=== PATIENT | male | born 1960 | race Caucasian/White ===

== ENCOUNTER 2020-03-13 05:40 | Inpatient (IN) ==
--- NOTE | 2020-02-20 11:22 | PAT Medication Instructions ---
Medication Instructions Date of Service February 20, 2020 Home Medications aspirin 81 mg PO QAM amlodipine 5 mg PO BID carvedilol [Coreg] 12.5 mg PO QAM doxazosin 2 mg PO QAM carvedilol [Coreg] 25 mg PO QPM ibuprofen-diphenhydramine HCl [Ibuprofen PM] 2 cap PO HS PRN insulin glargine [Lantus U-100 Insulin] 30 unit SUBCUT QAM omega 9-fcg-fdh-fish oil [Fish Oil] 1 cap PO QAM ASK your surgeon for instructions ibuprofen-diphenhydramine HCl [Ibuprofen PM] 2 cap PO HS PRN ASK your prescriber and surgeon aspirin 81 mg PO QAM STOP taking 2 weeks before surgery (or as soon as possible if surgery is within 2 weeks) omega 4-wcw-cnv-fish oil [Fish Oil] 1 cap PO QAM Take morning of surgery With a small sip of water, OTHERWISE NOTHING TO EAT OR DRINK AFTER MIDNIGHT: amlodipine 5 mg PO BID carvedilol [Coreg] 12.5 mg PO QAM doxazosin 2 mg PO QAM Take evening before surgery amlodipine 5 mg PO BID carvedilol [Coreg] 25 mg PO QPM Insulin Dependent Diabetic Patients * Test your blood sugar the morning of surgery * If Blood Sugar is GREATER THAN 150, take HALF of your regular dose of: insulin glargine [Lantus U-100 Insulin] take 15 units * If Blood Sugar is LESS THAN 150, DO NOT TAKE ANY: insulin glargine [Lantus U- 100 Insulin] Other Notes If you have any questions please call us at [phone] or [phone] or [phone] or [phone]
--- NOTE | 2020-02-20 11:27 | Anesthesiology Consultation ---
Date of Service February 20, 2020 Assessment & Plan (1) Encounter for pre-operative examination: - Patient seeing cardiology prior to surgery. Awaiting cardiology office visit note (scheduled 02/25, [facility]). - Check BSG AM DOS - ASA instructions per surgeon/cardiology Chart Review Chart Review: Patient seen in Pre Admission Testing Teaching & Discussion Pre-Anesthesia Teaching/Discussion Notes: Instructed NPO after midnight before surgery,except medications with 15 cc of water. Medication instructions provided according to the PAT guidelines. History Surgery Operation Date: 03/13/20 10:05 Proposed Procedures p L4-L5 Transforaminal Lumbar Interbody Fusion; Spinal Cord Monitoring - Poli Chan DO Height/Weight Height: 5 ft 11 in Weight: 114.4 kg Allergies Allergy/AdvReac Type Severity Reaction Status Date / Time No Known Allergies Allergy Verified 02/19/20 10:02 Medications Home Medications Medication Instructions Recorded Confirmed Last Taken aspirin 81 mg PO QAM #0 12/07/13 02/19/20 Unknown amlodipine 5 mg PO BID #0 tab 11/27/15 02/19/20 Unknown carvedilol [Coreg] 12.5 mg PO QAM #0 tab 11/27/15 02/19/20 Unknown doxazosin 2 mg PO QAM #0 11/27/15 02/19/20 Unknown carvedilol [Coreg] 25 mg PO QPM 02/19/20 02/19/20 Unknown ibuprofen-diphenhydramine HCl 2 cap PO HS PRN 02/19/20 02/19/20 Unknown [Ibuprofen PM] insulin glargine [Lantus U-100 30 unit SUBCUT QAM 02/19/20 02/19/20 Unknown Insulin] omega 1-uup-vcy-fish oil [Fish Oil] 1 cap PO QAM 02/19/20 02/19/20 Unknown Past Medical History Medical History Degenerative disc disease Diabetes mellitus, type 2 IDDM GERD (gastroesophageal reflux disease) occasional Hyperlipidemia Myocardial Infarction x3, most recent 2018, stent placed 06/2015 Obesity Osteoarthritis Exercise / Class Metabolic Activity III < 4 Walking/Shop/Light housework Past Surgical History Surgical History History of cardiac cath 2015: stent x1, 2018: no stents History of colonoscopy 2019 History of discectomy History of esophagogastroduodenoscopy (EGD) 2019 History of hernia repair History of vasectomy Past Anesthesia History No Hx of Anesthesia Complications and No Family Hx of Anesthesia Complications History of PONV No Hx of PONV and No Hx of Motion Sickness Social History Smoking Status: Current every day smoker tobacco type: cigarettes Smoking cigarettes per day: 1 PPD (tobacco use x 45 years) Do You Dip or Chew Tobacco: No Hx Alcohol Use: Yes Alcohol type: beer alcohol intake frequency: holidays/special occasions only Hx Substance Use: No Review of Systems Occasional reflux. Patient denies chest pain, shortness of breath, cough, wheezing, palpitations. Physical Exam Vital Signs VITALS BP 148/70 P 78 TEMP 98.3 SP02 96%RA RESP 20 PHYSICAL Full neck and c-spine range of motion. Full TMJ range of motion. TMD 3 finger breaths Mallampati Score 2 Dentition: missing molars Lungs: clear throughout to auscultation Cardiac: regular rate and rhythm, no murmurs noted Spine: normal Carotid arteries: negative bruit Extremities: no edema Trimmed be Testing Laboratory Results 02/20/20 11:53 02/20/20 11:53 PT 11.2 Seconds (9.0-12.0) 02/20/20 11:53 INR 1.1 (0.9-1.1) 02/20/20 11:53 APTT 26.9 Seconds (21.0-31.0) 02/20/20 11:53 Hemoglobin A1c 8.4 % (4.5-5.6) H 02/20/20 11:53 Urine Color Yellow 02/20/20 Unknown Urine Appearance Clear (Clear) 02/20/20 Unknown Urine pH 5.0 (4.5-7.5) 02/20/20 Unknown Ur Specific Walsh 1.015 (1.000-1.030) 02/20/20 Unknown Urine Protein Trace (Negative) H 02/20/20 Unknown Urine Glucose (UA) Negative (Negative) 02/20/20 Unknown Urine Ketones Negative (Negative) 02/20/20 Unknown Urine Nitrite Negative (Negative) 02/20/20 Unknown Ur Leukocyte Esterase Trace (Negative) H 02/20/20 Unknown Urine WBC (Auto) 1-5 /hpf (0-5) 02/20/20 Unknown Urine RBC (Auto) 0-4 /hpf (0-4) 02/20/20 Unknown U Hyaline Cast (Auto) 1-5 /lpf (0-5) 02/20/20 Unknown U Epithel Cells (Auto) 0-5 /lpf (0-5) 02/20/20 Unknown Urine Bacteria (Auto) Negative (Negative) 02/20/20 Unknown Blood Type AB Positive 02/20/20 11:53 Antibody Screen NEGATIVE 02/20/20 11:53 Surgeon's office made aware of elevated WBC/Hgba1c* Electrocardiogram Date: 02/20/20 NSR at 74bpm. No significant change compared to 11/27/15 per cardiology. Chest X-Ray Date: 02/20/20 The cardiac and mediastinal contours remain stable. There is no failure. There is no focal pulmonary consolidation. There are no pleural effusions. There are multiple old right-sided rib fractures. A retrosternal nodule visualized on the lateral view only, is quite dense despite its small size and is therefore likely benign. IMPRESSION: No active disease in the chest. Echocardiogram Date: 09/08/18 LVEF 60-65%. Mild LAD. Mild mitral annular calcification. No significant va lvular disease. Cardiac Catheterization Date: 09/09/18 Non-obstructive coronary atherosclerosis. Normal resting hemodynamics. Diffuse 30% stenosis of proximal LAD.
--- NOTE | 2020-02-20 12:17 | XRay Report ---
XR chest Pre-admission PA/Lat CLINICAL HISTORY: Preoperative chest COMPARISON STUDY: December 07, 2013 FINDINGS: The cardiac and mediastinal contours remain stable. There is no failure. There is no focal pulmonary consolidation. There are no pleural effusions. There are multiple old right-sided rib fract ures. A retrosternal nodule visualized on the lateral view only, is quite dense despite its small siz e and is therefore likely benign[ IMPRESSION: No active disease in the chest. ACT 112: Negative or not required by law. Electronically signed by: Dez Guzman M.D. 02/20/2020 12:16 PM
[2020-02-20 12:31] LABS: Basophils # (auto) 0.05 K/uL (0-0.2); Basophils % (auto) 0.3 %; Eosinophils # (auto) 0.26 K/uL (0-0.5); Eosinophils % (auto) 1.5 %; Hematocrit (blood only) 43.2 % (42-52); Hemoglobin 14.8 g/dL (14.0-18.0); Immature Granulocytes # (auto) 0.07 K/uL (0.00-0.02); Immature Granulocytes % (auto) 0.4 %; Lymphocytes # (auto) 2.36 K/uL (1.2-3.4); Lymphocytes % (auto) 13.6 %; Mean Corpuscular Hemoglobin 32.2 pg (25-34); Mean Corpuscular Hgb Conc 34.3 g/dL (32-36); Mean Corpuscular Volume 94.1 fL (80-100); Mean Platelet Volume 11.6 fL (7.4-10.4); Monocytes # (auto) 1.38 K/uL (0.11-0.59); Monocytes % (auto) 7.9 %; Neutrophils # (auto) 13.24 K/uL (1.4-6.5); Neutrophils % (auto) 76.3 %; Platelet Count 211 K/uL (130-400); RDW Coefficient of Variation 13.3 % (11.5-14.5); RDW Standard Deviation 45.4 fL (36.4-46.3); Red Blood Count 4.59 M/uL (4.7-6.1); White Blood Count 17.36 K/uL (4.8-10.8)
[2020-02-20 12:36] LABS: Estimated Average Glucose 194 mg/dl; Hemoglobin A1C 8.4 % (4.5-5.6)
[2020-02-20 12:38] LABS: Appearance Urine Clear (Clear); Bacteria Urine Automated Negative (Negative); Bilirubin Urine Negative (Negative); Blood Urine Negative (Negative); Color Urine Yellow; Epithelial Cell Urine Auto 0-5 /lpf (0-5); Glucose Urine UA Negative (Negative); Ketones Urine Negative (Negative); Leukocyte Esterase Urine Trace (Negative); Nitrite Urine Negative (Negative); Protein Urine Trace (Negative); RBC Urine Automated 0-4 /hpf (0-4); Specific Gravity Urine 1.015 (1.000-1.030); Urobilinogen Urine Negative (Negative)
[2020-02-20 12:40] LABS: BUN Creatinine Ratio 14.7 (10-20); Calcium 9.3 mg/dl (8.5-10.1); Creatinine Clr Calc Pharmacy 124.8 ml/min; Est GFR (African American) 112.4; Potassium 4.7 mmol/L (3.5-5.1)
[2020-02-20 12:43] LABS: INR 1.1 (0.9-1.1); Partial Thromboplastin Time 26.9 Seconds (21.0-31.0); Prothrombin Time 11.2 Seconds (9.0-12.0)
--- NOTE | 2020-02-20 13:00 | Electrocardiogram Report ---
Test Reason : Blood Pressure : / mmHG Vent. Rate : 074 BPM Atrial Rate : 074 BPM P-R Int : 158 ms QRS Dur : 090 ms QT Int : 390 ms P-R-T Axes : 072 059 024 degrees QTc Int : 432 ms Normal sinus rhythm Normal ECG When compared with ECG of 27-NOV-2015 09:47, No significant change was found Confirmed by Yared Couch ([id number]) on 02/20/2020 1:00:40 PM Referred By: Poli Chan Confirmed By:Yared Couch
--- NOTE | 2020-03-08 10:16 | History & Physical Report ---
Date of Service March 08, 2020 Assessment & Plan (1) Lumbar disc herniation with radiculopathy: At this time patient has a component of underlying's lumbar spinal stenosis with acute disc herniation and compression of the exiting L4 nerve root on the right. This undoubtedly is contributing to his severe pain muscle atrophy and progressive weakness. With these changes I am recommending urgent lumbar decompression and fusion. It would require complete facetectomy L4-5 on the right adequately decompress the L4 nerve root. Prolonged nerve compression in his case could lead to permanent leg weakness and pain. We will try to have surgery range performed soon as possible. Present on Admission?: Yes History of Present Illness Chief Complaint: Back pain with bilateral leg pain and weakness Primary Care Provider: Dora Weinstein PA-C This is a 51-year-old male who presents with worsening back and bilateral leg pain and weakness. It has been progressive over the past several months. Denies any gross precipitating trauma fall or event. He is failed extensive course of nonoperative care he describes his symptoms as rating from the lumbosacral junction particular into the right buttock posterior lateral thigh radiating to the anterior tibia. He has some symptoms radiating to the left l ower extremity as well. It markedly limits his ability to stand and ambulate. He gets some relief with sitting and leaning forward. It does awaken him from sleep. He notes marked difficulty with ascending and descending stairs as his right lower extremity gives way. This is been progressive in nature. Allergies Allergy/AdvReac Type Severity Reaction Status Date / Time No Known Allergies Allergy Verified 02/19/20 10:02 Home Medications Home Medications Medication Instructions Recorded Confirmed Type aspirin 81 mg PO QAM #0 12/07/13 02/19/20 History amlodipine 5 mg PO BID #0 tab 11/27/15 02/19/20 History carvedilol [Coreg] 12.5 mg PO QAM #0 tab 11/27/15 02/19/20 History doxazosin 2 mg PO QAM #0 11/27/15 02/19/20 History carvedilol [Coreg] 25 mg PO QPM 02/19/20 02/19/20 History ibuprofen-diphenhydramine HCl 2 cap PO HS PRN 02/19/20 02/19/20 History [Ibuprofen PM] insulin glargine [Lantus U-100 30 unit SUBCUT QAM 02/19/20 02/19/20 History Insulin] omega 6-bnt-usd-fish oil [Fish Oil] 1 cap PO [facility] 02/19/20 02/19/20 History hydrochlorothiazide 12.5 mg PO DAILY 02/29/20 02/29/20 History gabapentin 300 mg capsule mg PO .TAKE 1 CAPSULE 3 TIMES 03/04/20 03/04/20 History DAILY. glipizide 10 mg tablet mg PO .Take 1 tablet twice daily 03/04/20 03/04/20 History metformin 1,000 mg tablet mg PO .TAKE 1 TABLET TWICE DAILY. 03/04/20 03/04/20 History naproxen 250 mg tablet mg PO .TAKE 1 TABLET 3 TIMES DAILY 03/04/20 03/04/20 History WITH MEALS. nebivolol 20 mg tablet mg PO .TAKE 1 TABLET DAILY. 03/04/20 03/04/20 History Past Med/Surg History Medical History (Updated 03/08/20 @ 10:15 by Poli Chan DO) CAD (coronary artery disease) Degenerative disc disease Diabetes mellitus, type 2 IDDM GERD (gastroesophageal reflux disease) occasional Hyperlipidemia Hypertension Myocardial Infarction x3, most recent 2018, stent placed 06/2015 Obesity Osteoarthritis Surgical History History of cardiac cath 2015: stent x1, 2018: no stents History of colonoscopy 2019 History of discectomy History of esophagogastroduodenoscopy (EGD) 2019 History of hernia repair History of vasectomy Social History Preferred Language: Gabonese Communication Ability: Effective Gun Perforator Required: No Beliefs That Will Affect Care: None Current Living Situation: Spouse Other Information That Helps Us Care for You: No Feels Safe at Home: Yes Smoking Status: Current every day smoker Tobacco Type: cigarettes ; Cigarettes Per Day: 1 PPD (tobacco use x 45 years) ; Do You Dip or Chew Tobacco: No ; Second Hand Exposure: No ; Tobacco Cessation Education Requested by Patient: No Hx Alcohol Use: Yes Alcohol type: beer Hx Substance Use: No Physical Exam Physical Exam: On exam he is alert and oriented He ambulates about the room with a stooped antalgic gait. Bench exam reveals marked sensory deficits on the right lower extremity compared to left. His absent deep tendon reflexes. There is no evidence of clonus. Strength testing demonstrates weakness at a 4/5 right dorsiflexion and quadriceps compared to a 5 over 5 strength on the left. Plantar flexion is a 5/5 bilaterally. He has negative logroll. Heart is regular rate and rhythm Lungs clear to auscultation Results & Data Diagnostic Findings MRI lumbar spine available for review demonstrates evidence of moderate degener ative discal disease throughout the lumbar spine. There is evidence of a disc herniation at L4-L5. There is severe right and moderate left neuroforaminal disease. There is evidence of a far lateral disc herniation at L4-5 on the right. There is significant displacement of the exiting L4 nerve root.
[2020-03-13] MEDS ORDERED: ACETAMINOPHEN 500 MG TAB PO SCH (06:00)
[2020-03-13] MEDS ORDERED: LR 15ML/HR IV SCH (06:00)
[2020-03-13] MEDS ORDERED: CeleBREX 200 MG CAP PO SCH (06:00)
[2020-03-13] MEDS ORDERED: CEFAZOLIN 2000MG 2,000 MG/15 ML SYR IV SCH (06:00)
[2020-03-13] MEDS ORDERED: GABAPENTIN 600 MG DOSE PO SCH (06:00)
[2020-03-13 06:24] LABS: Basophils # (auto) 0.08 K/uL (0-0.2); Basophils % (auto) 0.7 %; Eosinophils # (auto) 0.31 K/uL (0-0.5); Eosinophils % (auto) 2.6 %; Hematocrit (blood only) 40.7 % (42-52); Hemoglobin 13.8 g/dL (14.0-18.0); Immature Granulocytes # (auto) 0.05 K/uL (0.00-0.02); Immature Granulocytes % (auto) 0.4 %; Lymphocytes # (auto) 2.08 K/uL (1.2-3.4); Lymphocytes % (auto) 17.5 %; Mean Corpuscular Hemoglobin 31.6 pg (25-34); Mean Corpuscular Volume 93.1 fL (80-100); Mean Platelet Volume 10.8 fL (7.4-10.4); Monocytes # (auto) 1.29 K/uL (0.11-0.59); Monocytes % (auto) 10.9 %; Neutrophils # (auto) 8.05 K/uL (1.4-6.5); Neutrophils % (auto) 67.9 %; Platelet Count 215 K/uL (130-400); RDW Coefficient of Variation 13.1 % (11.5-14.5); RDW Standard Deviation 44.6 fL (36.4-46.3); Red Blood Count 4.37 M/uL (4.7-6.1); White Blood Count 11.86 K/uL (4.8-10.8)
[2020-03-13 06:31] LABS: Mean Corpuscular Hgb Conc 33.9 g/dL (32-36)
[2020-03-13] MEDS ORDERED: GLYCOPYRROLATE 0.2 MG/ML VIAL ONE ×2 (06:50→09:19)
[2020-03-13] MEDS ORDERED: ONDANSETRON INJ 2 MG/ML 2 ML VIAL ONE (06:50)
[2020-03-13] MEDS ORDERED: fentaNYL citrate 100 MCG/2 ML VIAL ONE (06:50)
[2020-03-13] MEDS ORDERED: DEXAMETHASONE SOD INJ 4 MG/ML VIAL ONE (06:50)
[2020-03-13] MEDS ORDERED: LIDOCAINE HCL 2% 2 ML VIAL/AMP(20MG/ML) INFIL ONE (06:50)
[2020-03-13] MEDS ORDERED: PROPOFOL IV EMULSION 10 MG/ML 20 ML VIAL IV ONE (06:50)
[2020-03-13] MEDS ORDERED: MIDAZOLAM HCL 1 MG/ML 2ML VIAL ONE (06:50)
[2020-03-13] MEDS ORDERED: NEOSTIGMINE METHYLSULFATE 5 MG/5 ML SYR ONE (06:50)
[2020-03-13] MEDS ORDERED: BACITRACIN INJ 50,000 UNIT VIAL ONE (06:56)
[2020-03-13] MEDS ORDERED: fentaNYL citrate 100 MCG/2 ML VIAL IV PRN (06:57)
[2020-03-13] MEDS ORDERED: HYDROmorphone INJ 1 MG/ML SYRINGE IV PRN ×2 (06:57→10:58)
[2020-03-13] MEDS ORDERED: BUPIVACAINE/EPINEPHRINE 0.5% MPF 1:200,000 10 ML VIAL ONE ×2 (06:57)
[2020-03-13] MEDS ORDERED: ONDANSETRON INJ 2 MG/ML 2 ML VIAL IV PRN ×2 (06:57→10:58)
[2020-03-13] MEDS ORDERED: ePHEDrine sulfate 50 MG/ML AMP IV PRN (06:57)
[2020-03-13] MEDS ORDERED: ATROPINE SULFATE 0.1 MG/ML 10ML SYR IV PRN (06:57)
[2020-03-13] MEDS ORDERED: LARYING-O-JET KIT (LTA) ONE (06:58)
[2020-03-13] MEDS ORDERED: SUCCINYLCHOLINE CHLORIDE 20 MG/ML 10 ML VIAL ONE (06:58)
[2020-03-13] MEDS ORDERED: SODIUM CHLORIDE 0.9% INJ 10 ML VIAL ONE (06:58)
[2020-03-13] MEDS ORDERED: ROCURONIUM BROMIDE 10 MG/ML 5 ML VIAL ONE (06:58)
[2020-03-13] MEDS ORDERED: HYDROmorphone INJ 2 MG/ML SYR/VIAL ONE (06:58)
[2020-03-13] MEDS ORDERED: DexMEDEtomidine HCL IV 100 MCG/ML VIAL ONE (07:14)
--- NOTE | 2020-03-13 07:35 | History & Physical Bridge Note ---
Date of Service March 13, 2020 History & Physical Bridge Note I have examined the patient, reviewed the History & Physical and in the interval since the performance of the History & Physical I have noted the following changes of clinical significance: no changes noted
[2020-03-13] MEDS ORDERED: ePHEDrine sulfate 50 MG/ML AMP ONE ×2 (09:07→09:37)
[2020-03-13] MEDS ORDERED: FLOSEAL HEMOSTATIC MATRIX 10ML TOP ONE (09:07)
[2020-03-13] MEDS ORDERED: PHENYLEPHRINE 100MCG/ML 5ML SYR ONE (09:37)
[2020-03-13] MEDS ORDERED: ePHEDrine sulfate 50 MG/ML SYR ONE (09:37)
--- NOTE | 2020-03-13 09:56 | Fluoroscopy Report ---
FL lumbar spine 2-3V CLINICAL HISTORY: 59 years-old Male presenting with L4-5 FUSION. TECHNIQUE: 2 fluoroscopic image(s) recorded as part of an intraoperative procedure. COMPARISON: MR from 11/20/2015. FINDINGS/IMPRESSION: Posterior bilateral transpedicular screw and roe fixation of L4-5 with L4 laminectomy and L4-5 interb missael spacer. Normal anatomic alignment. Please see surgical report for further details. Fluoroscopy dosage (mGy): 13.20. Fluoroscopy time: 13.4 seconds. Number or time of high level fluoroscopy (HLF), digital spot, or digital subtraction images: 0. ACT 112: Negative or not required by law. Electronically signed by: Jarek Barber M.D. 03/13/2020 9:55 AM
--- NOTE | 2020-03-13 10:05 | Operative Report ---
Post Operative Report Pre & Post Diagnosis Operation Date: 03/13/20 07:45 Pre-Op Diagnosis: Lumbar Disc Herniation with Radiculopathy L4-L5 Post-Op Diagnosis: Lumbar Disc Herniation with Radiculopathy L4-L5 I identified the patient and participated in the time-out.: Yes Procedure Operation Date: 03/13/20 07:45 Actual Procedures #1 lumbar decompression with bilateral medial facetectomies and foraminotomies L3-4 and L4-5. #2 posterior spinal fusion L4-5 per #3 placed posterior instrumentation L4-5 per #4 interbody fusion L4-5 per #5 placement of peek cage 14 x 26 mm at L4-5. #6 placement of locally harvested morselized autograft in the posterior lateral gutters. #7 placement infuse collagen sponge, master graft in the posterior lateral gutters and ostial amp in the interbody space. Surgeon Poli Chan, Head Of Acquisitions Muna Lucero Estimated Blood Loss 100 Findings See Below Patient is 5 foot 11 inches tall weighing over 112 kg with a BMI in excess of 34. The patient's body habitus did add significant technical difficulty requiring our deeper retractors and longest instruments in order to perform his procedure. This added at least 40% increase to the operative time. Specimens None Indications This is a 59-year-old male that noted a marked decline in status over the past several months with progressive bilateral leg pain and weakness. Subsequently we recommended urgent decompression and fusion of the L4-5 level. Description of Procedure Patient was met with identified informed consent obtained. Patient was then taken to the operative suite underwent intubation placed in a prone position the Enrique table on top of the Oj frame. All bony prominences well-padded eyes inspected to ensure no external pressure placed upon them. This point the lumbar spine was prepped and draped in a normal sterile fashion. Sharp disse ction with the assistance of Bovie cautery was performed down to and exposing the lamina and transverse processes of L4 and L5. From caudal cephalad fashion complete laminectomy of L4 was performed including partial laminectomy of L3 in order to address and performed bilateral medial facetectomies and foraminotomies to address severe spinal stenosis. Pedicle screws were then placed in L4 and L5 bilaterally with assistance of fluoroscopy and proper sized roe placed. By way of a transforaminal approach and left complete discectomy was performed endplates curetted to subcortical bleeding bone and a 14 x 26 mm peek cage filled with osteo-bone graft tapped in position. The rods were then compressed locked into final position bilaterally. The transverse processes of L4 and L5 bur to subcortical bleeding bone. Infuse collagen sponge master graft local autograft placed in the posterior lateral gutters. 15 round HANK drain inserted. Incision was then closed with 1 Vicryl in the fascia 2-0 Vicryl subcutaneously and 4 Monocryl for final skin closure. Steri-Strip sterile dressings placed. Patient will continue PACU stable addition. Please note Muna Lucero present at the entire procedure involved the patient positioning complex portions of the surgery and final skin closure. Lastly spinal cord monitoring was utilized throughout the procedure no changes noted. I attest to the content of the Intraoperative Record and any orders documented therein. Any exceptions are noted below.
[2020-03-13] MEDS ORDERED: ALUMINUM/MAGNESIUM SUSP 30 ML UDC PO PRN (10:58)
[2020-03-13] MEDS ORDERED: FAMOTIDINE 20 MG TAB PO PRN (10:58)
[2020-03-13] MEDS ORDERED: ONDANSETRON 4 MG OD TAB PO PRN (10:58)
[2020-03-13] MEDS ORDERED: LORazepam 0.5 MG TAB PO PRN (10:58)
[2020-03-13] MEDS ORDERED: DO NOT ADMINISTER PNEUMOCOCCAL VACCINE PRN (10:58)
[2020-03-13] MEDS ORDERED: MAGNESIUM HYDROXIDE SUSP 30 ML UDC PO PRN (10:58)
[2020-03-13] MEDS ORDERED: DO NOT ADMINISTER FLU VACCINE PRN (10:58)
[2020-03-13] MEDS ORDERED: NALOXONE HCL 0.4 MG/1 ML VIAL/CARP IV PRN (10:58)
[2020-03-13] MEDS ORDERED: SOD PHOSPHATE/SOD BIPHOSPHATE ENEMA 132 ML BTL PR PRN (10:58)
[2020-03-13] MEDS ORDERED: TRAMADOL HCL 50 MG TABLET PO PRN (10:58)
[2020-03-13] MEDS ORDERED: LORazepam 0.5 MG/1 ML VIAL IV PRN (10:58)
[2020-03-13] MEDS ORDERED: bisacodyL 10 MG SUPP PR PRN (10:58)
[2020-03-13] MEDS ORDERED: METOCLOPRAMIDE HCL INJ 5 MG/ML 2 ML VIAL IV PRN (10:58)
[2020-03-13] MEDS ORDERED: HYDROmorphone INJ 0.5 MG/0.5 ML SYR IV PRN (10:58)
[2020-03-13] MEDS ORDERED: PROMETHAZINE HCL 12.5 MG in SODIUM CHLORIDE 0.9% 50 ML IV PRN (10:58)
--- NOTE | 2020-03-13 11:12 | Anesthesiology Progress Note ---
Date of Service March 13, 2020 Anesthesia Post Procedure Vital Signs Vital Signs: Temp Pulse Pulse Resp BP BP Pulse Ox 03/13/20 10:59 36.5 C 69 16 113/78 98 03/13/20 10:40 36.2 C L 69 16 124/77 96 03/13/20 10:30 76 16 122/77 96 03/13/20 10:24 36.0 C L 81 16 122/76 98 03/13/20 06:29 36.6 C 76 20 132/79 97 Pain Intensity Lower Back: Pain Intensity: 1 Transfer of Care Handoff Completed per policy Notes Mental Status: alert / awake / arousable and participated in evaluation Patient Amnestic to Procedure: Yes Nausea / Vomiting: adequately controlled Pain: adequately controlled Airway Patency, RR, SpO2: stable & adequate BP & HR: stable & adequate Hydration State: stable & adequate Anesthetic Complications: no major complications apparent and Pt Satisfied with anesthetic care
[2020-03-13] MEDS ORDERED: GLUCOSE 10 TABS/TUBE PO PRN (11:15)
[2020-03-13] MEDS ORDERED: CARBOHYDRATES FOR HYPOGLYCEMIA PO PRN (11:15)
[2020-03-13] MEDS ORDERED: GLUCOSE 40% GEL 15 GM TUBE PO PRN (11:15)
[2020-03-13] MEDS ORDERED: GLUCAGON FOR INJ 1 MG VIAL SQ PRN (11:15)
[2020-03-13] MEDS ORDERED: DEXTROSE 50% 50 ML SYRINGE IV PRN (11:15)
--- NOTE | 2020-03-13 11:45 | Consultation ---
Date of Consultation March 13, 2020 Assessment & Plan (1) Lumbar disc herniation with radiculopathy: Status post lumbar decompression fusion L4-L5 POD #[address] Chan Tolerated procedure well EBL 100 mL; HANK drain 60 mL Pain/wound management per Ortho Activity and therapy as directed by Ortho DVT prophylaxis per Ortho Encourage incentive spirometry and wean O2 as able Monitor H&H -preop hemoglobin 14.1 and 43.2 (immediately postop H&H 13.8 and 40.7) (2) Diabetes: Last A1c 8.4 on 02/20/2020 Hold metformin Lantus/NovoLog per protocol Anticipate mild hyperglycemia in setting of surgical stress, but patient did not receive preop steroid (3) Hypertension: Blood pressure stable Continue amlodipine and Coreg with parameters Hold HCTZ, reevaluate volume status in a.m. prior to reinitiating (4) Hyperlipidemia: continue statin (5) Tobacco abuse: encourage smoking cessation DVT prophylaxis: Per Primary Code Status: Full Code Disposition: Per primary Follow up: PCP Jeramie Mckeon PA-C upon discharge Pt was seen and examined in collaboration with Dr. Gipson, please see addendum Thank you for this consultation. We will follow the patient with you during their hospital stay. You can reach a member of the [facility]06 via pager @ [phone]. Supervising Physician Co-Signing Physician Notes I have seen and examined the patient and have discussed the case with the provider above. I agree with the assessment and plan as stated. 59 yo M with lumbar surgery today, doing well post-operatively. Glucose was within range and then sunitha slightly into the low 200s around dinner time. Agree with basal bolus insulin plan for now. Uncontrolled A1C at baseline. Pt reports pain is well managed. Agree with physical above, vitals stable. Heart and lung exam normal, no respiratory distress, WNWD man, mentating clearly, +HANK drain in place, lumbar gauze covering surgery site that is c/d/i. Thank you for this consultation. DO Brandan History of Present Illness Requesting Physician: Dr. Chan Reason for Consultation: Postop medical management Attending Physician: Poli Chan DO History of Present Illness This is a 59-year-old male who has significant PMH of CAD with history of stent to L PDA June 2015, T2DM, HTN, HLD, GERD, fatty liver disease, obesity who presents to [facility] for lumbar procedure by Dr. Chan. Pt has lumbar disc herniation with radiculopathy of L4-L5. We have been consulted to provide post op medical management. He tolerated procedure well with EBL of 100ml. Currently he states he, "feels good." He denies f/c/s, dizziness, lightheaded, chest pain, sob, palpitations, cough, n/v/d, abdominal pain. Prior to procedure he denies any change in bowel or urinary habits. He has good appetite. He has hx of CAD with prior stent in 2014. He denies any chest pain with exertion, at rest or exertional dyspnea. He has been having elevated blood pressure readings at home and in PCP office. Prior to procedure he was started on HCTZ 12.5mg daily and noticed improvement ( although he didn't check his pressure.) He has been on this for 3-4 days. He has uncontrolled T2DM on insulin. Last A1C was 8.4 on 02/20/20. Allergies Allergy/AdvReac Type Severity Reaction Status Date / Time No Known Allergies Allergy Verified 03/13/20 06:03 Home Medications Home Medications Medication Instructions Recorded Confirmed Type aspirin 81 mg PO QAM #0 12/07/13 03/13/20 History amlodipine 5 mg PO BID #0 tab 11/27/15 03/13/20 History carvedilol [Coreg] 12.5 mg PO QAM #0 tab 11/27/15 03/13/20 History doxazosin 2 mg PO QAM #0 11/27/15 03/13/20 History carvedilol [Coreg] 25 mg PO QPM 02/19/20 03/13/20 History ibuprofen-diphenhydramine HCl 2 cap PO HS PRN 02/19/20 03/13/20 History [Ibuprofen PM] insulin glargine [Lantus U-100 30 unit SUBCUT QAM 02/19/20 03/13/20 History Insulin] omega 6-owo-jhk-fish oil [Fish Oil] 1 cap PO QAM 02/19/20 03/13/20 History hydrochlorothiazide 12.5 mg PO DAILY 02/29/20 03/13/20 History metformin 1,000 mg tablet 1,000 mg PO .TAKE 1 TABLET TWICE 03/04/20 03/13/20 History DAILY. atorvastatin 80 mg PO DAILY 03/13/20 03/13/20 History meloxicam 15 mg PO DAILY PRN 03/13/20 03/13/20 History Patient History Medical History (Updated 03/13/20 @ 11:59 by Juani Bae PA-C) CAD (coronary artery disease) Degenerative disc disease Diabetes mellitus, type 2 IDDM Fatty liver GERD (gastroesophageal reflux disease) occasional Hyperlipidemia Hypertension Myocardial Infarction x3, most recent 2018, stent placed 06/2015 Obesity Osteoarthritis Tobacco abuse Surgical History History of cardiac cath 2015: stent x1, 2018: no stents History of colonoscopy 2019 History of discectomy History of esophagogastroduodenoscopy (EGD) 2019 History of hernia repair History of vasectomy Family History Father Diabetes Hypertension Mother Breast cancer Social History (Updated 03/13/20 @ 11:45 by Juani Bae PA-C) Preferred Language: Burkinan Communication Ability: 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 Beliefs That Will Affect Care: None marital status: Current Living Situation: Spouse Other Information That Helps Us Care for You: No Feels Safe at Home: Yes Smoking Status: Current every day smoker Tobacco Type: cigarettes ; Cigarettes Per Day: 1 PPD (tobacco use x 45 years) ; Do You Dip or Chew Tobacco: No ; Second Hand Exposure: No ; Tobacco Cessation Education Requested by Patient: No Hx Alcohol Use: Yes Alcohol type: beer Alcohol Intake Frequency: Weekly Alcohol Intake Frequency Comment: Socially, last intake was 2 days ago 2 light beers Hx Substance Use: No Review of Systems Review of Systems: All systems reviewed & are unremarkable except as noted in HPI & below Physical Exam Physical Exam: Constitutional: WD/WN, Obese, M, vitals as above, NAD, sitting up in bed, pleasant, conversing easily Head: Normocephalic, Atraumatic Eyes: PERRL, conjunctivae normal, anicteric sclerae ENMT: external ear and nose normal, oropharynx normal Neck: trachea midline, no thyromegaly normal visual inspection Respiratory: normal respiratory effort, lungs clear to auscultation, no wheeze, rales, rhonchi. Normal insp/exp effort, no accessory muscle use Cardiovascular: RRR, no murmur, no edema Vessels: no JVD or carotid bruit Chest: normal inspection of chest Abdomen: normal bowel sounds, soft, nontender, no hepatosplenomegaly Musculoskeletal: no cyanosis or clubbing, extremities motor strength 5/5 Skin: no rashes, warm and dry normal turgor , Lumbar dressing CDI +HANK drain with serosanguineous drainage Neurologic: PERRL, EOMI, accommodation nl, no face palsy, no dysarthria CN's II-XI intact bilaterally and moves all extremities Psychiatric: A+Ox3, euthymic affect Lymphatic: no cervical or axillary lymphadenopathy : deferred Results & Data ([facility]) Vital Signs (Past 12 Hours) Vital Signs Temp Pulse Pulse Resp BP BP Pulse Ox 03/13/20 11:22 35.5 C L 74 16 124/80 93 03/13/20 10:59 36.5 C 69 16 113/78 98 03/13/20 10:40 36.2 C L 69 16 124/77 96 03/13/20 10:30 76 16 122/77 96 03/13/20 10:24 36.0 C L 81 16 122/76 98 03/13/20 06:29 36.6 C 76 20 132/79 97 Laboratory Results Short CBC 03/13/20 Range/Units 06:16 WBC 11.86 H (4.8-10.8) K/uL Hgb 13.8 L (14.0-18.0) g/dL Hct 40.7 L (42-52) % Plt Count 215 (130-400) K/uL Diagnostic Findings CXR: IMPRESSION: No active disease in the chest. Lumbar Spine Xray: CLINICAL HISTORY: 59 years-old Male presenting with L4-5 FUSION. TECHNIQUE: 2 fluoroscopic image(s) recorded as part of an intraoperative procedure. COMPARISON: MR from 11/20/2015. FINDINGS/IMPRESSION: Posterior bilateral transpedicular screw and roe fixation of L4-5 with L4 laminectomy and L4-5 interbody spacer. Normal anatomic alignment. Medications Administered Acetaminophen (Tylenol) 1,000 mg PO PREOP BETZAIDA Stop: 03/13/20 18:00 Last Admin: 03/13/20 06:49 Dose: 1,000 mg Documented by: [id number] Celecoxib (Celebrex) 200 mg PO PREOP BETZAIDA Stop: 03/13/20 18:00 Last Admin: 03/13/20 06:49 Dose: 200 mg Documented by: [id number] Gabapentin (Neurontin) 600 mg PO PREOP BETZAIDA Stop: 03/13/20 18:00 Last Admin: 03/13/20 06:48 Dose: 600 mg Documented by: [id number] Lactated Ringer's (Lr) 1,000 mls @ 15 mls/hr IV .Q24H BETZAIDA Stop: 03/14/20 05:59 Last Infusion: 03/13/20 07:46 Dose: 0 mls/hr Documented by: [id number] Admin: 03/13/20 06:49 Dose: 15 mls/hr Documented by: [id number] Cefazolin Sodium (Ancef 2000mg) 2,000 mg in 15 mls @ 3.75 mls/min IV PREOP BETZAIDA; Protocol Stop: 03/13/20 18:00 Last Admin: 03/13/20 07:45 Dose: 3.75 mls/min Documented by: [id number] Discontinued Medications Bacitracin (Bacitracin) Confirm Administered Dose 50,000 units .ROUTE .STK-MED ONE Stop: 03/13/20 06:57 Last Admin: 03/13/20 09:44 Dose: 50,000 units Documented by: [id number] Bupivacaine HCl/Epinephrine Bitart (Sensorcaine/Epinephrine 0.5% Mpf 1:200,000) Confirm Administered Dose 30 ml .ROUTE .STK-MED ONE Stop: 03/13/20 06:58 Last Admin: 03/13/20 09:06 Dose: 20 ml Documented by: [id number] Bupivacaine HCl/Epinephrine Bitart (Sensorcaine/Epinephrine 0.5% Mpf 1:200,000) Confirm Administered Dose 10 ml .ROUTE .STK-MED ONE Stop: 03/13/20 06:58 Last Admin: 03/13/20 09:06 Dose: Not Given Documented by: [id number] Miscellaneous (Floseal Hemostatic Matrix 10ml) 10 ml TOP ONCE ONE Stop: 03/13/20 09:08 Last Admin: 03/13/20 09:45 Dose: 12 ml Documented by: [id number] ECG Rate (beats per minute): 75 Rhythm: normal sinus Findings: + T-wave inversion (III)
[2020-03-13] MEDS: KETOROLAC 30 MG/ML VIAL IV SCH ×3 (12:28→23:58)
[2020-03-13] MEDS: SODIUM CHLORIDE 0.9% 1000ML 1,000 ML IV SCH ×2 (13:34→21:47)
[2020-03-13] MEDS: INSULIN ASPART 100 UNITS/ML 3 ML PEN SC SCH ×3 (13:34→20:54)
[2020-03-13] MEDS ORDERED: ACETAMINOPHEN 500 MG TAB PO PRN (15:00)
[2020-03-13] MEDS ORDERED: ACETAMINOPHEN 1,000 MG/100 ML VIAL IV PRN (15:00)
[2020-03-13] MEDS: CEFAZOLIN 2000MG 2,000 MG/15 ML SYR IV SCH ×2 (16:30→23:58)
[2020-03-13] MEDS: carvediloL 25 MG TAB PO SCH (20:26)
[2020-03-13] MEDS: AMLODIPINE BESYLATE 5 MG TAB PO SCH (20:27)
[2020-03-13] MEDS: DOCUSATE SODIUM/SENNA 50/8.6MG TAB PO SCH (20:27)
[2020-03-13] MEDS: INSULIN GLARGINE SOLOSTAR 100 UNITS/ML 3 ML PEN SC SCH (20:54)
[2020-03-14] MEDS: POLYETHYLENE (MIRALAX) 17 GM PACK PO SCH ×4 (05:35→21:07)
[2020-03-14] MEDS: KETOROLAC 30 MG/ML VIAL IV SCH (05:35)
[2020-03-14 05:41] LABS: Basophils # (auto) 0.04 K/uL (0-0.2); Basophils % (auto) 0.2 %; Eosinophils # (auto) 0.08 K/uL (0-0.5); Eosinophils % (auto) 0.4 %; Hematocrit (blood only) 35.8 % (42-52); Hemoglobin 12.1 g/dL (14.0-18.0); Immature Granulocytes # (auto) 0.09 K/uL (0.00-0.02); Immature Granulocytes % (auto) 0.5 %; Lymphocytes # (auto) 1.74 K/uL (1.2-3.4); Lymphocytes % (auto) 9.1 %; Mean Corpuscular Hemoglobin 31.9 pg (25-34); Mean Corpuscular Hgb Conc 33.8 g/dL (32-36); Mean Corpuscular Volume 94.5 fL (80-100); Monocytes # (auto) 2.12 K/uL (0.11-0.59); Monocytes % (auto) 11.1 %; Neutrophils # (auto) 14.98 K/uL (1.4-6.5); Neutrophils % (auto) 78.7 %; Platelet Count 223 K/uL (130-400); Red Blood Count 3.79 M/uL (4.7-6.1); White Blood Count 19.05 K/uL (4.8-10.8)
[2020-03-14 06:08] LABS: BUN Creatinine Ratio 18.5 (10-20); Calcium 8.4 mg/dl (8.5-10.1); Creatinine Clr Calc Pharmacy 142.3 ml/min; Est GFR (African American) 119.2; Est GFR (Non-African American) 102.8
--- NOTE | 2020-03-14 08:02 | Orthopedic Progress Note ---
Date of Service March 14, 2020 Assessment & Plan (1) Lumbar disc herniation with radiculopathy: This time we will continue physical therapy monitor his HANK output anticipate discharge home in the next few days. Present on Admission?: Yes Admission and Anticipated Discharge Date Admission Date: March 13, 2020 Subjective Back pain controlled leg pain markedly improved he feels his strength is improved. Physical Exam Physical Exam: Patient is in a chair at the bedside. Is good strength testing. Appears comfortable. Results & Data ([facility]) Vital Signs (Past 12 Hours) Vital Signs Temp Pulse Pulse Resp BP Pulse Ox 03/14/20 07:13 36.6 C 75 16 154/79 H 93 03/14/20 03:42 36.3 C L 78 18 133/74 95 03/13/20 22:54 36.5 C 69 18 121/69 93 03/13/20 20:22 36.8 C 83 16 143/80 H 95 03/13/20 20:19 36.5 C 87 16 137/80 94
[2020-03-14] MEDS: INSULIN ASPART 100 UNITS/ML 3 ML PEN SC SCH ×4 (08:50→21:44)
[2020-03-14] MEDS: INSULIN GLARGINE SOLOSTAR 100 UNITS/ML 3 ML PEN SC SCH ×2 (08:51→21:44)
[2020-03-14] MEDS: DOXAZosin MESYLATE TAB 2 MG TAB PO SCH (08:53)
[2020-03-14] MEDS: carvediloL 12.5 MG TAB PO SCH (08:53)
[2020-03-14] MEDS: OMEGA-3 (PURIFIED FISH OIL) 1 GM CAP PO SCH (08:54)
[2020-03-14] MEDS: AMLODIPINE BESYLATE 5 MG TAB PO SCH ×2 (08:54→21:08)
[2020-03-14] MEDS: ASPIRIN 81 MG ECTAB PO SCH (08:54)
[2020-03-14] MEDS ORDERED: hydroCHLOROthiazide 25 MG TAB PO SCH (09:00)
--- NOTE | 2020-03-14 15:11 | Hospitalist Progress Note ---
Date of Service March 14, 2020 Assessment & Plan (1) Lumbar disc herniation with radiculopathy: S/P lumbar decompression fusion L4-L5 POD #[address] Chan Lumbar Spine X ray:Posterior bilateral transpedicular screw and roe fixation of L4-5 with L4 laminectomy and L4-5 interbody spacer. Normal anatomic alignment. Pain management, wound care, activity and DVT prophylaxis as per Ortho Continue bowel regimen to prevent constipation Monitor CBC Continue PT OT Leukocytosis Likely due to Decadron Has chronic leukocytosis at baseline as per patient No obvious source of infection (2) Diabetes: Last A1c 8.4 on 02/20/2020 Hold metformin Lantus/NovoLog per protocol (3) Hypertension: Blood pressure stable Continue amlodipine, Coreg Hold HCTZ for now (4) Hyperlipidemia: continue statin (5) Tobacco abuse: Public Relations Writer to quit smoking DVT Px: As per Primary Code Status: Full Code Disposition: As per primary Admission and Anticipated Discharge Date Admission Date: March 13, 2020 Subjective Patient is seen and examined at bedside Low back pain at surgical site is well controlled No BM yet this morning Doing well with physical therapy today Denies any chest pain, shortness of breath, dizziness, nausea, abdominal pain Offers no other complaints Review of Systems Review of Systems: All systems reviewed & are unremarkable except as noted in HPI & below Physical Exam Physical Exam: Physical Exam: Vitals signs as noted above General Appearance:Moderately built and nourished, no apparent distress Head: normocephalic, Atraumatic Eyes: normal inspection, EOMI, PERRL Neck: supple, Trachea midline Respiratory/Chest: Normal breath sounds, CTA Cardiovascular: S1, S2, No murmur Abdomen/GI:Soft, Non tender, Bowel sounds present Back:Surgical site in dressing, +drain Extremities/Musculoskelatal:normal inspection, no edema Neurologic/Psych:AAOX3, grossly no focal neurological deficits Skin: normal color, warm Results & Data Results & Data ([facility]) Vital Signs (Past 12 Hours) Vital Signs Temp Pulse Pulse Resp BP Pulse Ox 03/14/20 12:13 36.6 C 73 18 137/80 94 03/14/20 10:22 93 03/14/20 07:13 36.6 C 75 16 154/79 H 93 03/14/20 03:42 36.3 C L 78 18 133/74 95 Laboratory Results Short CBC 03/14/20 Range/Units 04:56 WBC 19.05 H (4.8-10.8) K/uL Hgb 12.1 L (14.0-18.0) g/dL Hct 35.8 L (42-52) % Plt Count 223 (130-400) K/uL BMP 03/14/20 04:56 Sodium 138 Potassium 4.0 Chloride 109 H Carbon Dioxide 24 BUN 13 Creatinine 0.72 Glucose 151 H Calcium 8.4 L
[2020-03-14] MEDS: OXYCODONE HCL IR 5 MG TAB (IMMEDIATE RELEASE) PO PRN ×2 (16:25→21:11)
[2020-03-14] MEDS: DOCUSATE SODIUM/SENNA 50/8.6MG TAB PO SCH (21:08)
[2020-03-14] MEDS: carvediloL 25 MG TAB PO SCH (21:09)
[2020-03-15 06:10] LABS: Hemoglobin 11.8 g/dL (14.0-18.0); Mean Corpuscular Hgb Conc 33.7 g/dL (32-36); Mean Corpuscular Volume 94.9 fL (80-100); Platelet Count 224 K/uL (130-400); RDW Coefficient of Variation 13.2 % (11.5-14.5); RDW Standard Deviation 45.9 fL (36.4-46.3); Red Blood Count 3.69 M/uL (4.7-6.1); White Blood Count 14.51 K/uL (4.8-10.8)
[2020-03-15] MEDS: OXYCODONE HCL IR 5 MG TAB (IMMEDIATE RELEASE) PO PRN ×2 (06:10→10:41)
[2020-03-15] MEDS: POLYETHYLENE (MIRALAX) 17 GM PACK PO SCH ×2 (06:14→12:36)
[2020-03-15 06:35] LABS: BUN Creatinine Ratio 21.5 (10-20); Calcium 8.5 mg/dl (8.5-10.1); Creatinine Clr Calc Pharmacy 148.5 ml/min; Est GFR (African American) 121.3; Est GFR (Non-African American) 104.6; Potassium 4.2 mmol/L (3.5-5.1)
[2020-03-15] MEDS: INSULIN GLARGINE SOLOSTAR 100 UNITS/ML 3 ML PEN SC SCH (08:24)
[2020-03-15] MEDS: INSULIN ASPART 100 UNITS/ML 3 ML PEN SC SCH ×2 (08:25→12:34)
[2020-03-15] MEDS: DOXAZosin MESYLATE TAB 2 MG TAB PO SCH (08:28)
[2020-03-15] MEDS: AMLODIPINE BESYLATE 5 MG TAB PO SCH (08:28)
[2020-03-15] MEDS: ASPIRIN 81 MG ECTAB PO SCH (08:28)
[2020-03-15] MEDS: carvediloL 12.5 MG TAB PO SCH (08:28)
[2020-03-15] MEDS: OMEGA-3 (PURIFIED FISH OIL) 1 GM CAP PO SCH (08:29)
--- NOTE | 2020-03-15 11:35 | Discharge Summary ---
Date of Service March 15, 2020 Admission HPI Per Admitting Provider This is a 51-year-old male who presents with worsening back and bilateral leg pain and weakness. It has been progressive over the past several months. Denies any gross precipitating trauma fall or event. He is failed extensive course of nonoperative care he describes his symptoms as rating from the lumbosacral junction particular into the right buttock posterior lateral thigh radiating to the anterior tibia. He has some symptoms radiating to the left lower extremity as well. It markedly limits his ability to stand and ambulate. He gets some relief with sitting and leaning forward. It does awaken him from sleep. He notes marked difficulty with ascending and descending stairs as his right lower extremity gives way. This is been progressive in nature. Principal Diagnosis Lumbar spinal stenosis with neurogenic claudication Discharge Data Allergies Allergy/AdvReac Type Severity Reaction Status Date / Time No Known Allergies Allergy Verified 03/13/20 06:03 Consultations 03/13/20 10:58 Consult Case Management - Discharge Planning Routine Consult Hospitalist Routine Procedures Performed Operation Date: 03/13/20 07:45 Actual Procedures p L4-L5 Transforaminal Lumbar Decompression and Instrumented Fusion with Application of Bone Morphogenetic Protein, Application of Osteoamp Allograft and Interbody Fusion; Spinal Cord Monitoring(Not Applicable) - Poli Chan DO Ordered Studies 03/13/20 07:45 FL fluoroscopy <1hr Routine FL lumbar spine 2-3V Routine Hospital Course (1) Lumbar disc herniation with radiculopathy: Patient underwent lumbar decompression fusion tolerated this well stay to orthopedic for possibly. Postop day 1 he was ambulating leg pain and strength improving. Progressed to postop day #2. HANK drain decreasing probably. Strength improving. Socially discharged home. Discharge orders instructions from the chart for further review. Total Time Total Time Spent Total Time Spent (In Minutes): 20 minutes Discharge Plan Discharge Items Patient Disposition: Home - Self-Care Reason For Visit: Radiculopathy, Lumbar Region Discharge Diagnosis: Lumbar spinal stenosis with radiculopathy Activity: As commented below Non-emergency contact: Primary Care Provider Call non-emergency contact if: you have any medication questions Follow-up/Referrals: Brianna Brandt PA-C [Primary Care Provider] - Diet: Regular Addtl Attending Provider Instructions: ACTIVITY RECOMMENDATIONS: SELF CARE INSTRUCTIONS AFTER THORACIC/LUMBAR FUSIONS 1. You may walk to your tolerance. It is good exercise for your legs and back. Expect some back and intermittent leg aches and pains. 2. You may perform "counter-top" level activities (make a sandwich, juan with a project, etc.). 3. No bending or lifting of more than 10 pounds or back twisting of any nature (roll like a log when turning in bed). 4. You may ride in a car for 20-30 minutes at a time. No driving until after your first visit with your doctor. 5. Frequent changes of position and restricting sitting to 30 minutes at a time will help limit the amount of back spasms and stiffness you may experience. 6. You may discontinue the use of ambulatory aids (cane, crutches, etc.) once your strength and confidence allow. 7. You may soaking pit operator the shower and let water strike your incision when you arrive home at least once daily. Do not take a tub bath, sit in a hot tub or go into a swimming pool until after your first recheck in the office. SPECIAL CARE INSTRUCTIONS: VERY IMPORTANT TO READ AND REVIEW A. Your surgical incision has been closed with a cosmetic suture under the skin that will dissolve in about 6 weeks. In 14 days, you can use a pair of clean scissors and cut the suture that is left outside of the skin at the ends of your incision. 1. The small skin tapes can be removed 7 days after surgery if they have not fallen off by that point. 2. You may keep the wound open to air as much as possible to promote healing after post-op day number 5 unless told otherwise by your doctor. 3. If you think the wound looks like it is becoming infected (redness or worsening drainage) and/or you are experiencing fever, chill or worsening back pain and muscle spasms, contact the office so that we may evaluate you as soon as possible. B. Complications are uncommon, but please contact us if you have any signs or symptoms of: 1. wound infection (fever higher than 102.5 degrees F, redness, separation of wound, drainage, or increasing pain from the incision) 2. blood clots in legs (pain, swelling, redness and warmth in legs) 3. urinary tract infection (fever higher than 102.5 degrees F, burning upon urination or increased frequency of urination) 4. nerve problems (inability to walk on your toes or heels, numbness, loss of bowel or bladder control) 5. any other symptoms that concern you C. Please call the office at if you have any concerns or questions about your operation or recovery. D. No smoking! Smoking drastically decreases the chance of a solid fusion. E. Do not take any anti-inflammatory medications (Indocin, Advil, Motrin, Aspirin, Naprosyn, etc.) as these may inhibit the chance of a solid fusion. Tylenol is okay to take for pain. MANAGING PAIN AFTER SPINAL SURGERY 1. Narcotic medication is intended for short-term use and will be provided for surgical pain. Surgical pain usually lasts for a period of 4-6 weeks. Narcotic medication includes Percocet, Vicodin, Darvocet, Tylenol #3 or Lortab. 2. Longer-term pain is more appropriately treated with non-narcotic medication such as Tylenol ES. 3. Muscle spasm is not appropriately treated with narcotics. Muscle relaxers such as Soma, Flexeril or Skelaxin can be used along with Tylenol ES. 4. Remember that we all live with some "aches and pains". This is not unusual or uncommon after an injury or as we get older. a. Back pain is expected and may include muscle spasms for 4 to 6 weeks after surgery. The pain should gradually improve. If the pain worsens for no apparent reason, please contact the office. b. Intermittent leg pain may also be experienced and should not be concerned about unless it worsens for no apparent reason. If so, please contact the office. 5. We will provide appropriate medication within the normal guidelines of their prescribed use. We will also be very cautious and aware of potential abuse and extended duration of patients' medication needs. a. Pain medications are for your comfort and to assist with sleep and rest so that the tissue can heal. They are not provided in order to return to normal activity and should not be used through the day. To do so or worsening pain at night can result from ongoing tissue damage and development of tolerance to the prescribed medicine. 6. Please allow 2-3 days to process refills. Prescriptions will not be mailed but must be picked up at the office. FOLLOW UP VISIT: Keep your scheduled follow-up appointment. Any questions, please call the office at . Pending Studies at Discharge: No Stand-Alone Forms: [facility] RoomActually, Smoking Cessation Medications and DC Order Prescriptions: New tramadol 50 mg tablet 50 mg PO Q6H PRN (Reason: pain, moderate) Qty: 30 RF: 0 oxycodone 5 mg tablet 5 mg PO Q6H PRN (Reason: pain, severe) Qty: 30 RF: 0 Continued aspirin 81 mg Tablet,Delayed Release (Dr/Ec) 81 mg PO QAM Qty: 0 RF: 0 carvedilol [Coreg] 12.5 mg Tablet 12.5 mg PO QAM Qty: 0 RF: 0 amlodipine 5 mg Tablet 5 mg PO BID Qty: 0 RF: 0 doxazosin 2 mg Tablet 2 mg PO QAM Qty: 0 RF: 0 metformin 1,000 mg tablet 1,000 mg PO .TAKE 1 TABLET TWICE DAILY. RF: 0 carvedilol [Coreg] 12.5 mg Tablet 25 mg PO QPM RF: 0 Lantus U-100 Insulin 100 unit/mL Solution 30 unit SUBCUT QAM RF: 0 omega 7-zgm-ymk-fish oil [Fish Oil] 1,000 mg (120 mg-180 mg) Capsule 1 cap PO QAM RF: 0 hydrochlorothiazide 12.5 mg Tablet 12.5 mg PO DAILY RF: 0 atorvastatin 80 mg Tablet 80 mg PO DAILY RF: 0 Discontinued Ibuprofen PM 200-25 mg Capsule 2 cap PO HS PRN (Reason: Sleep) RF: 0 meloxicam 15 mg Tablet 15 mg PO DAILY PRN (Reason: Pain) RF: 0 Discharge Orders: Discharge Order (Routine); Ordered 03/15/20 Ordered By: Poli Alexander/Other Patient Handouts: Diabetes Type 2 Managing, Blood Sugar Check Admission Data Admit Date/Time: 03/13/20 10:28 Attending Provider: Poli Chan Admit Provider: Poli Chan Primary Care Provider: Brianna Brandt Other Providers: Caleb Fernandez
--- NOTE | 2020-03-15 14:22 | Hospitalist Progress Note ---
Date of Service March 15, 2020 Assessment & Plan (1) Lumbar disc herniation with radiculopathy: S/P lumbar decompression fusion L4-L5 POD #[address] Chan Lumbar Spine X ray:Posterior bilateral transpedicular screw and roe fixation of L4-5 with L4 laminectomy and L4-5 interbody spacer. Normal anatomic alignment. Pain management, wound care, activity and DVT prophylaxis as per Ortho Continue bowel regimen to prevent constipation Monitor CBC Continue PT OT Leukocytosis: Likely due to Decadron Has chronic leukocytosis at baseline as per patient No obvious source of infection WBCs count trended down (2) Diabetes: Last A1c 8.4 on 02/20/2020 Hold metformin Lantus/NovoLog per protocol (3) Hypertension: Blood pressure stable Continue amlodipine, Coreg Resume HCTZ upon discharge (4) Hyperlipidemia: continue statin (5) Tobacco abuse: [employer] Rep to quit smoking DVT Px: As per Primary Code Status: Full Code Disposition: As per primary Admission and Anticipated Discharge Date Admission Date: March 13, 2020 Subjective Patient is seen and examined at bedside Complains of low back pain at surgical site especially with standing and ambulation Offers no other complaints Denies any chest pain, shortness of breath, dizziness, nausea, abdominal pain Review of Systems Review of Systems: All systems reviewed & are unremarkable except as noted in HPI & below Physical Exam Physical Exam: Physical Exam: Vitals signs as noted above General Appearance:Moderately built and nourished, no apparent distress Head: normocephalic, Atraumatic Eyes: normal inspection, EOMI, PERRL Neck: supple, Trachea midline Respiratory/Chest: Normal breath sounds, CTA Cardiovascular: S1, S2, No murmur Abdomen/GI:Soft, Non tender, Bowel sounds present Back:Surgical site in dressing, +drain Extremities/Musculoskelatal:normal inspection, no edema Neurologic/Psych:AAOX3, grossly no focal neurological deficits Skin: normal color, warm Results & Data Results & Data ([facility]) Vital Signs (Past 12 Hours) Vital Signs Temp Pulse Pulse Resp BP BP Pulse Ox 03/15/20 13:25 36.7 C 88 89 18 132/79 114/77 94 03/15/20 13:24 36.7 C 88 89 18 132/79 114/77 94 03/15/20 07:29 36.7 C 88 18 114/77 94 Laboratory Results Short CBC 03/15/20 Range/Units 05:34 WBC 14.51 H (4.8-10.8) K/uL Hgb 11.8 L (14.0-18.0) g/dL Hct 35.0 L (42-52) % Plt Count 224 (130-400) K/uL BMP 03/15/20 05:34 Sodium 139 Potassium 4.2 Chloride 110 H Carbon Dioxide 26 BUN 15 Creatinine 0.69 Glucose 104 H Calcium 8.5
== END 2020-03-15 13:40 | disposition home or self-care (01) | DRG 455 ==
LOC: ASU 05:40 → 3E 10:28

== ENCOUNTER 2022-04-21 10:32 | Inpatient (IN) ==
--- NOTE | 2022-04-16 09:24 | Anesthesiology Consultation ---
Date of Service April 16, 2022 Assessment & Plan (1) Encounter for pre-operative examination: Chart Review Chart Review: Acceptable Risk for Surgery (pending preop Covid testing results ) and Patient NOT seen in Pre Admission Testing - Check BSG AM DOS Per nursing assessment 04/16/2022, patient denies any recent travel. No known COVID infection in the past 90 days. Patient is fully vaccinated for COVID. No known Covid positive exposures or Covid related symptoms. Preop Covid testing scheduled 04/17/22= will await results Patient seen by cardiology 03/26/2022 = Seen for preop exam. Since last visitdaryl chodwhury concerns. Has had 2 prior back surgeries and has been doing relatively well. Patient was active this past winter with shoveling snow, hunting, and walking 2 to 3 miles a day up the mountains. Unfortunately slipped on a patch of ice and injured his back. "Based on the revised cardiac risk index for preoperative risk he has an elevated class III 10.1% 30-day risk of , DC, or cardiac arrest related to his history of ischemic heart disease and diabetes but this is not prohibitive. He is optimized from a cardiac standpoint. Prior to his back injury he was easily able to complete >4 METS of activity without anginal symptoms. He does not have evidence of heart failure on exam and is without concern for arrhythmias." Per patient last hemoglobin A1c was 6.8. He is intermediate risk for the planned surgical procedure. Continue aspirin in the perioperative period without interruption. CADcontinue current medications. Hypertensioncontinue meds. Hyperlipidemiacontinue statin. Follow-up in 1 year. L4-5 transforaminal lumbar interbody fusion 03/13/2020 = done under [facility] with grade 2 view with MAC #3. ETT #8. DL x1, atraumaticpre-existing chips to front teeth unchanged. History Surgery Operation Date: 04/21/22 07:45 Proposed Procedures p L5-S1 Decompression and Fusion, L4-L5 Hardware Removal, Spinal Cord Monitoring - Poli Chan DO Height/Weight Height: 5 ft 11 in Weight: 108.862 kg Allergies Allergy/AdvReac Type Severity Reaction Status Date / Time No Known Allergies Allergy Verified 04/16/22 08:31 Medications Home Medications Medication Instructions Recorded Confirmed Last Taken aspirin 81 mg tablet,delayed 81 mg PO QAM #0 12/07/13 04/16/22 03/12/20 08:30 release amlodipine 5 mg tablet 5 mg PO BID #0 tab 11/27/15 04/16/22 03/13/20 04:00 omega 8-bnd-mqn-fish oil 1,000 mg 1 cap PO QAM 02/19/20 04/16/22 03/01/20 (120 mg-180 mg) capsule (Fish Oil) atorvastatin 80 mg tablet 80 mg PO HS 03/13/20 04/16/22 Unknown carvedilol 12.5 mg tablet (Coreg) 12.5 mg PO .COMPLEX tab 08/09/20 04/16/22 Unknown doxazosin 2 mg tablet 4 mg PO QAM #0 tab 08/09/20 04/16/22 Unknown hydrochlorothiazide 12.5 mg tablet 25 mg PO QAM tab 08/09/20 04/16/22 Unknown insulin syringe-needle U-100 0.3 #400 ea 09/17/20 10/27/21 Unknown mL 31 gauge x 5/16" (BD Insulin Syringe Ultra-Fine) insulin aspart U-100 100 unit/mL 7 unit SUBCUT TID vial 04/07/21 04/16/22 Unknown subcutaneous solution (Novolog U-100 Insulin aspart) metformin 1,000 mg tablet 1,000 mg PO BID tab 04/07/21 04/16/22 Unknown insulin glargine 100 unit/mL 10 unit SUBCUT QAM ml 10/27/21 04/16/22 Unknown subcutaneous solution (Lantus U-100 Insulin) calcium phosphate,dibasic 77 1 tab PO QAM 04/16/22 04/16/22 Unknown mg-vitamin D3 400 unit tablet docusate sodium 50 mg capsule 50 mg PO BID 04/16/22 04/16/22 Unknown (Stool Softener) Past Medical History Medical History CAD (coronary artery disease) S/p stenting to the left PDA in 06/2015 2018: Cath showed nonobstructive CAD with patent PDA stent Diabetes Dyslipidemia Fatty liver GERD (gastroesophageal reflux disease) occasional Hypertension Lumbar disc herniation with radiculopathy Myocardial Infarction x3, most recent 2018, stent placed 06/2015 [facility] Obesity Osteoarthritis Tobacco abuse Past Family History Family History Father Diabetes Hypertension Mother Breast cancer Grandmother (Maternal) Diabetes Grandmother (Paternal) Diabetes Sister Diabetes Past Surgical History Surgical History History of back surgery 2 yrs ago History of cardiac cath 2015: stent x1- to left PDA 2018: cath showed nonobstructive CAD with patent PDA stent History of colonoscopy 2019 History of discectomy History of esophagogastroduodenoscopy (EGD) 2019 History of hernia repair History of vasectomy Social History Smoking Status: Current every day smoker tobacco type: cigarettes Smoking cigarettes per day: 1 pack per day-advised Do You Dip or Chew Tobacco: No Hx Alcohol Use: Yes (once per mo) Alcohol type: beer alcohol intake frequency: holidays/special occasions only Hx Substance Use: No Lab Results Anesthesia Preop Results Results Anesthesia Widget: WBC 12.12 K/uL (4.8-10.8) H 03/12/22 Hgb 14.4 g/dL (14.0-18.0) 03/12/22 Hct 41.7 % (42-52) L 03/12/22 Plt 244 K/uL (130-400) 03/12/22 Na 134 mmol/L (136-145) L 03/12/22 K 4.9 mmol/L (3.5-5.1) 03/12/22 Cl 106 mmol/L (98-107) 03/12/22 CO2 21 mmol/L (21-32) 03/12/22 BUN 12 mg/dl (6-23) 03/12/22 Creat 0.79 mg/dl (0.6-1.4) 03/12/22 Glucose Level 141 mg/dl (70-99(Fasting)) H 03/12/22 PT 10.5 Seconds (9.0-12.0) 03/12/22 PTT 26.1 Seconds (21.0-31.0) 03/12/22 INR 1.0 (0.9-1.1) 03/12/22 Urine Color Yellow 03/12/22 Urine Appearance Clear (Clear) 03/12/22 Urine pH 5.0 (4.5-7.5) 03/12/22 Urine Specific [place] 1.014 (1.000-1.030) 03/12/22 Urine Protein Negative (Negative) 03/12/22 Urine Glucose (UA) Negative (Negative) 03/12/22 Urine Ketones Negative (Negative) 03/12/22 Urine Blood Negative (Negative) 03/12/22 Urine Nitrite Negative (Negative) 03/12/22 Urine Bilirubin Negative (Negative) 03/12/22 Urine Urobilinogen Negative (Negative) 03/12/22 Urine Leukocyte Esterase Negative (Negative) 03/12/22 Testing Laboratory Results Chronic leukocytosis per 11/20/21 PCP note- has been seen by heme- workup negative in 2019- questionably due to polyarthritis 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 Chest X-Ray Date: 03/12/22 FINDINGS: Lung volumes are normal. 1.6 cm circumscribed nodular density projects over the heart on lateral projection. There is no pneumothorax or pleural effusion. Cardiac size is normal. Mediastinal contours are normal. There is no evidence for pulmonary edema. Multiple old right-sided rib fractures are incidentally noted. IMPRESSION: 1. No acute cardiopulmonary findings. 2. 1.6 cm circumscribed nodular density which projects over the heart on lateral projection. This may reflect a healed rib fracture. However, a nonemergent chest CT is recommended to exclude a pulmonary nodule. (Discussed with Dr. Mock- will send CXR to PCP for continuity of care to follow up postoperatively) Echocardiogram Date:09/08/18 LVEF 60-65%. Mild LAD. Mild mitral annular calcification. No significant valvular disease. Cardiac Catheterization Date:09/09/18 Non-obstructive coronary atherosclerosis. Normal resting hemodynamics. Diffuse 30% stenosis of proximal LAD.
[~2022-04-21 10:32] MED LIST: ACETAMINOPHEN 500 MG TAB PO SCH; CeleBREX 200 MG CAP PO SCH; GABAPENTIN 600 MG DOSE PO SCH; LR 15ML/HR IV SCH; ceFAZolin 2000MG 2,000 MG/15 ML SYR IV SCH
[2022-04-21] MEDS ORDERED: fentaNYL citrate 100 MCG/2 ML VIAL IV PRN (11:33)
[2022-04-21] MEDS ORDERED: ONDANSETRON INJ 2 MG/ML 2 ML VIAL IV PRN ×2 (11:33→16:25)
[2022-04-21] MEDS ORDERED: ePHEDrine sulfate 50 MG/ML AMP IV PRN (11:33)
[2022-04-21] MEDS ORDERED: ATROPINE SULFATE 0.1 MG/ML 10ML SYR IV PRN (11:33)
[2022-04-21] MEDS ORDERED: HYDROmorphone INJ 1 MG/ML SYRINGE IV PRN ×2 (11:33→16:25)
[2022-04-21] MEDS ORDERED: BUPIVACAINE/EPINEPHRINE 0.25% 1:200,000 30 ML VIAL ONE (12:00)
[2022-04-21] MEDS ORDERED: ceFAZolin 330 MG/ML 1 GM VIAL ONE (12:00)
[2022-04-21] MEDS ORDERED: MIDAZOLAM HCL 1 MG/ML 2ML VIAL ONE (12:08)
[2022-04-21] MEDS ORDERED: NEOSTIGMINE METHYLSULFATE 1 MG/ML 10ML VIAL ONE (12:08)
[2022-04-21] MEDS ORDERED: DEXAMETHASONE SOD INJ 4 MG/ML VIAL ONE (12:08)
[2022-04-21] MEDS ORDERED: HYDROmorphone INJ 2 MG/ML SYR/VIAL ONE (12:08)
[2022-04-21] MEDS ORDERED: ONDANSETRON INJ 2 MG/ML 2 ML VIAL ONE (12:08)
[2022-04-21] MEDS ORDERED: GLYCOPYRROLATE 0.2 MG/ML VIAL ONE (12:08)
[2022-04-21] MEDS ORDERED: LIDOCAINE 2% 2 ML VIAL/AMP(20MG/ML) INFIL ONE (12:08)
[2022-04-21] MEDS ORDERED: PROPOFOL IV EMULSION 10 MG/ML 20 ML VIAL IV ONE (12:08)
[2022-04-21] MEDS ORDERED: fentaNYL citrate 100 MCG/2 ML VIAL ONE (12:08)
[2022-04-21] MEDS ORDERED: ROCURONIUM BROMIDE 10 MG/ML 5 ML VIAL IV ONE (12:11)
--- NOTE | 2022-04-21 12:21 | History & Physical Bridge Note ---
Date of Service April 21, 2022 History & Physical Bridge Note I have examined the patient, reviewed the History & Physical and in the interval since the performance of the History & Physical I have noted the following changes of clinical significance: no changes noted
--- NOTE | 2022-04-21 12:22 | History & Physical Report ---
Date of Service April 21, 2022 Assessment & Plan (1) Neurogenic claudication due to lumbar spinal stenosis: Plan: L5-S1 decompression and fusion, L4-L5 hardware removal History of Present Illness Chief Complaint: Back and leg pain Primary Care Provider: NO PCP This is a 62-year-old male presents with current persistent back and leg pain. Failing course of nonoperative care is here for surgical intervention. Allergies Allergy/AdvReac Type Severity Reaction Status Date / Time lisinopril AdvReac Unknown Hives Verified 04/21/22 11:04 Home Medications Medication Instructions Recorded Confirmed Type aspirin 81 mg tablet,delayed 81 mg PO QAM #0 12/07/13 04/21/22 History release amlodipine 5 mg tablet 5 mg PO BID #0 tab 11/27/15 04/21/22 History omega 2-piy-sfy-fish oil 1,000 mg 1 cap PO QAM 02/19/20 04/21/22 History (120 mg-180 mg) capsule (Fish Oil) atorvastatin 80 mg tablet 80 mg PO HS 03/13/20 04/21/22 History carvedilol 12.5 mg tablet (Coreg) 12.5 mg PO .COMPLEX tab 08/09/20 04/21/22 History doxazosin 2 mg tablet 4 mg PO QAM #0 tab 08/09/20 04/21/22 History hydrochlorothiazide 12.5 mg tablet 25 mg PO QAM tab 08/09/20 04/21/22 History insulin syringe-needle U-100 0.3 #400 ea 09/17/20 10/27/21 Rx mL 31 gauge x 5/16" (BD Insulin Syringe Ultra-Fine) insulin aspart U-100 100 unit/mL 7 unit SUBCUT TID vial 04/07/21 04/21/22 History subcutaneous solution (Novolog U-100 Insulin aspart) metformin 1,000 mg tablet 1,000 mg PO BID tab 04/07/21 04/21/22 History insulin glargine 100 unit/mL 10 unit SUBCUT QAM ml 10/27/21 04/21/22 History subcutaneous solution (Lantus U-100 Insulin) calcium phosphate,dibasic 77 1 tab PO QAM 04/16/22 04/21/22 History mg-vitamin D3 400 unit tablet docusate sodium 50 mg capsule 50 mg PO BID 04/16/22 04/21/22 History (Stool Softener) Past Med/Surg History Medical History CAD (coronary artery disease) S/p stenting to the left PDA in 06/2015 2018: Cath showed nonobstructive CAD with patent PDA stent Diabetes Dyslipidemia Fatty liver GERD (gastroesophageal reflux disease) occasional Hypertension Lumbar disc herniation with radiculopathy Myocardial Infarction x3, most recent 2018, stent placed 06/2015 [facility] [place] Obesity Osteoarthritis Tobacco abuse Surgical History History of back surgery 2 yrs ago History of cardiac cath 2015: stent x1- to left PDA 2018: cath showed nonobstructive CAD with patent PDA stent History of colonoscopy 2019 History of discectomy History of esophagogastroduodenoscopy (EGD) 2019 History of hernia repair History of vasectomy Family History Father Diabetes Hypertension Mother Breast cancer Grandmother (Maternal) Diabetes Grandmother (Paternal) Diabetes Sister Diabetes Social History Smoking Status: Current every day smoker Tobacco Type: Cigars packs per day: 1; Cigarettes Per Day: 1 pack per day-advised; Second Hand Exposure: No; Do You Dip or Chew Tobacco: No; Tobacco Cessation Education Requested by Patient: No Hx Alcohol Use: Yes (once per mo) Alcohol type: beer Alcohol Intake Frequency Comment: Socially, last intake was 2 days ago 2 light beers Hx Substance Use: No Preferred Language: Upper Sorbian Communication Ability: Effective International Coordinator Required: No Beliefs That Will Affect Care: None marital status: Current Living Situation: Spouse Other Information That Helps Us Care for You: No Feels Safe at Home: Yes Safety Concerns: Feels Safe At This Time Assistive Devices: Glasses Assistive Devices Comment: reading glasses Physical Exam Physical Exam: Patient is alert and oriented Heart regular rhythm Lungs clear Results & Data Results & Data ([facility]) Vital Signs (Past 12 Hours) Vital Signs Temp Pulse Resp BP Pulse Ox 04/21/22 11:09 37 C 95 H 18 155/93 H 97
[2022-04-21] MEDS ORDERED: FLOSEAL HEMOSTATIC MATRIX 10ML TOP ONE (13:39)
[2022-04-21] MEDS ORDERED: ePHEDrine sulfate 50 MG/ML AMP ONE (14:00)
--- NOTE | 2022-04-21 14:34 | Operative Report ---
Post Operative Report Pre & Post Diagnosis Operation Date: 04/21/22 12:25 Pre-Op Diagnosis: Neurogenic claudication due to lumbar spinal stenosis Post-Op Diagnosis: Neurogenic claudication due to lumbar spinal stenosis I identified the patient and participated in the time-out.: Yes Procedure Operation Date: 04/21/22 12:25 Actual Procedures #1 removal of posterior instrumentation L4-5. #2 exploration of fusion L4-5. #3 lumbar decompression with bilateral medial facetectomies and foraminotomies L5-S1. #4 posterior spinal fusion L5-S1. #5 placement of posterior instrumentation L4-S1. #6 interbody fusion L5-S1. #7 placement of peek cage 14 x 26 mm at L5-S1. #8 placement locally harvested morselized autograft in the posterior gutters. #9 placement of I factor combined with V toss in the interbody space and posterior lateral gutters. Surgeon Poli Chan, DO Cover Cutter Machine Muna Lucero Estimated Blood Loss 100 Findings See Below The patient is 5 feet 11 inches tall weighing over 110 kg with a BMI in excess of 33. The patient's body habitus did contribute to significant technical difficulties requiring her deepest retractors and longer instruments in order to perform his procedure. This had at least 50% increased operative time. Specimens None Indications This is a 62-year-old male who presents with above-mentioned diagnosis after failed course of nonoperative care is here for the above-mentioned procedure. Description of Procedure Patient was met with identified informed consent obtained. Patient was then taken to the operative suite underwent ablation placed in a prone position on the Enrique on top Oj frame. All bony prominences well-padded eyes inspected to ensure no external pressure placed upon them. This point the lumbar spine was prepped and draped in normal sterile fashion. Sharp dissection with the assistance of Bovie cautery was performed down to and exposing instrumentation out L4-L5 as well as the lamina and transverse processes of L5 and the sacral ala bilaterally. Then proceeded to remove the hardware at L4-L5 bilaterally exploring the fusion mass noting it to be maturing. I then performed a complete laminectomy of L5 including bilateral medial facetectomies and foraminotomies addressing all neural compression. Pedicle screws then placed in L4-L5 and S1 levels bilaterally with assistance of fluoroscopy and appropriately sized roe placed. By way of a transforaminal approach on the left complete discectomy of L5-S1 was performed endplates curetted to subcortical bleeding bone and a 14 x 26 mm spiral cage filled with I factor tapped in position. The rods then compressed locked in final position bilaterally. The transverse processes of L5 and the sacral ala burred to subcortical bleeding bone. I factor combined with V toss and locally harvested morselized autograft was then placed in the posterior lateral gutters. 15 round HANK drain inserted. The incision was then closed with 1 Vicryl in the fascia 2-0 Vicryl subcutaneously and 4 Monocryl for final skin closure. Steri-Strip sterile dressings placed. Patient waken taken to PACU stable condition. Please note spinal cord monitoring visualized at the procedure no changes noted. Lastly Muna Lucero was present out the entire surgery and while the patient positioning complex portions of the surgery and final skin closure. I attest to the content of the Intraoperative Record and any orders documented therein. Any exceptions are noted below.
--- NOTE | 2022-04-21 14:49 | Fluoroscopy Report ---
FL lumbar spine 2-3V CLINICAL HISTORY: L5-S1 DECOMPRESSION AND FUSION L4-L5 HW REMOVAL COMPARISON STUDY: Lumbar spine fluoroscopic images March 13, 2020. FLUOROSCOPY TIME: 16 seconds. FLUOROSCOPIC IMAGES: 2 FINDINGS: Interval L5-S1 discectomy with interbody spacer placement as noted. Previous L4-L5 discecto my is noted. Posterior decompression is noted with bilateral pedicle screws at the L4, L5 and S1 leve ls. There are interconnecting roe. IMPRESSION: Fluoroscopy provided during interval L5-S1 discectomy and L4-S1 posterior decompression and fusion. ACT 112: Negative or not required by law. Electronically signed by: Vladimir Deleon M.D. 04/21/2022 2:48 PM
--- NOTE | 2022-04-21 15:56 | Anesthesiology Progress Note ---
Date of Service April 21, 2022 Anesthesia Post Procedure Vital Signs Vital Signs: Temp Pulse Pulse Resp BP Pulse Ox 04/21/22 15:45 66 21 144/83 H 94 04/21/22 15:35 58 L 23 146/79 H 95 04/21/22 15:25 36.2 C L 65 24 142/89 H 97 04/21/22 15:15 66 16 142/78 H 95 04/21/22 15:05 70 21 143/81 H 92 04/21/22 14:55 72 16 145/84 H 96 04/21/22 14:46 36.2 C L 86 16 148/80 H 99 04/21/22 11:09 37 C 95 H 18 155/93 H 97 Pain Intensity Back: Pain Intensity: 2 Transfer of Care Handoff Completed per policy Notes Mental Status: alert / awake / arousable Patient Amnestic to Procedure: Yes Nausea / Vomiting: adequately controlled Pain: adequately controlled Airway Patency, RR, SpO2: stable & adequate BP & HR: stable & adequate Hydration State: stable & adequate Anesthetic Complications: no major complications apparent and Pt Satisfied with anesthetic care
[2022-04-21] MEDS ORDERED: ONDANSETRON 4 MG OD TAB PO PRN (16:25)
[2022-04-21] MEDS ORDERED: DO NOT ADMINISTER PNEUMOCOCCAL VACCINE PRN (16:25)
[2022-04-21] MEDS ORDERED: traMADol HCL 50 MG TABLET PO PRN (16:25)
[2022-04-21] MEDS ORDERED: oxyCODONE HCL IR 5 MG TAB (IMMEDIATE RELEASE) PO PRN (16:25)
[2022-04-21] MEDS ORDERED: bisacodyL 10 MG SUPP PR PRN (16:25)
[2022-04-21] MEDS ORDERED: SOD PHOSPHATE/SOD BIPHOSPHATE ENEMA 132 ML BTL PR PRN (16:25)
[2022-04-21] MEDS ORDERED: METOCLOPRAMIDE HCL INJ 5 MG/ML 2 ML VIAL IV PRN (16:25)
[2022-04-21] MEDS ORDERED: ALUMINUM/MAGNESIUM SUSP 30 ML UDC PO PRN (16:25)
[2022-04-21] MEDS ORDERED: FAMOTIDINE 20 MG TAB PO PRN (16:25)
[2022-04-21] MEDS ORDERED: DO NOT ADMINISTER FLU VACCINE PRN (16:25)
[2022-04-21] MEDS ORDERED: HYDROmorphone INJ 0.5 MG/0.5 ML SYR IV PRN (16:25)
[2022-04-21] MEDS ORDERED: hydrOXYzine HCl 25 MG TAB PO PRN (16:25)
[2022-04-21] MEDS ORDERED: PHARMACY GLYCEMIC MGMT CONSULT PRN (16:25)
[2022-04-21] MEDS ORDERED: MAGNESIUM HYDROXIDE SUSP 30 ML UDC PO PRN (16:25)
[2022-04-21] MEDS ORDERED: LORazepam 0.5 MG TAB PO PRN (16:25)
[2022-04-21] MEDS ORDERED: NALOXONE HCL 0.4 MG/1 ML VIAL/CARP IV PRN (16:25)
[2022-04-21] MEDS ORDERED: LORazepam 2 MG/1 ML VIAL IV PRN (16:25)
[2022-04-21] MEDS ORDERED: ACETAMINOPHEN 500 MG TAB PO PRN (16:25)
[2022-04-21] MEDS ORDERED: ACETAMINOPHEN 1,000 MG/100 ML VIAL IV PRN (16:25)
[2022-04-21] MEDS ORDERED: PROMETHAZINE HCL 12.5 MG in SODIUM CHLORIDE 0.9% 50 ML IV PRN (16:25)
[2022-04-21] MEDS ORDERED: diphenhydrAMINE Capsule 25 MG CAP PO PRN (16:25)
[2022-04-21] MEDS ORDERED: GLUCAGON FOR INJ 1 MG VIAL IM PRN (17:00)
[2022-04-21] MEDS ORDERED: GLUCOSE 40% GEL 15 GM TUBE PO PRN (17:00)
[2022-04-21] MEDS ORDERED: INSULIN GLARGINE SOLOSTAR 100 UNITS/ML 3 ML PEN SC ONE (17:00)
[2022-04-21] MEDS ORDERED: CARBOHYDRATES FOR HYPOGLYCEMIA PO PRN (17:00)
[2022-04-21] MEDS ORDERED: GLUCOSE 10 TABS/TUBE PO PRN (17:00)
[2022-04-21] MEDS ORDERED: DEXTROSE 50% 50 ML SYRINGE IV PRN (17:00)
[2022-04-21] MEDS: INSULIN ASPART PER UNIT SC SCH ×2 (18:24→21:29)
[2022-04-21] MEDS: SODIUM CHLORIDE 0.9% 1000ML 1,000 ML IV SCH (18:38)
[2022-04-21] MEDS ORDERED: NON-FORMULARY MEDICATION (Docusate Sodium [Stool Softener] 50 mg Capsule) PO SCH (21:00)
[2022-04-21] MEDS ORDERED: carvediloL 12.5 MG TAB PO SCH (21:00)
[2022-04-21] MEDS ORDERED: DOCUSATE SODIUM/SENNA 50/8.6MG TAB PO SCH (21:00)
[2022-04-21] MEDS ORDERED: ATORVASTATIN 40 MG TAB PO SCH (21:00)
[2022-04-21] MEDS: amLODIPine BESYLATE 5 MG TAB PO SCH (21:16)
[2022-04-21] MEDS: ceFAZolin 2000MG 2,000 MG/15 ML SYR IV SCH (21:21)
--- NOTE | 2022-04-21 21:28 | Consultation ---
Date of Consultation April 21, 2022 Assessment & Plan (1) Neurogenic claudication due to lumbar spinal stenosis: (2) Diabetes type 2, controlled: (3) Hypertension: (4) CAD (coronary artery disease): (5) Dyslipidemia: Lumbar Spinal stenosis s/p neurogenic claudication: -s/p L5-S1 decompression/Fusion and hardware removal -POD #0 -VSS and overall normal exam - PT/OT consult - pain management per primary team - trend CBC and BMP - c/w bowel regimen ---- LBM: today IDDM: -per pt he took lantus 8 units today morning - on novolog and metformin at home - currently on ISS - can restart pts home lantus dose (10 units) tomorrow - hold metformin HTN: -BP wnl - continue home BP meds (HCTZ, Amlodipine and doxazoin) - per pt he take doxazosin for HTN HLD/CAD s/p stent: -continue statin - can restart aspirin once pt is stable ---- usually can restart 24 hrs after surgery History of Present Illness Reason for Consultation: medical management Attending Physician: Poli Chan DO History of Present Illness Pt is a 62 y/o M with hx of CAD s/p Stent, IDDM, HLD, HTN, Lumbar spinal stenosis with neurogenic claudication admitted for Lumbar decompression/Fusion. At bedside: pt denied any CP, SOB or abd pain or N/V Allergies Allergy/AdvReac Type Severity Reaction Status Date / Time lisinopril AdvReac Unknown Hives Verified 04/21/22 11:04 Home Medications Medication Instructions Recorded Confirmed Type aspirin 81 mg tablet,delayed 81 mg PO QAM #0 12/07/13 04/21/22 History release amlodipine 5 mg tablet 5 mg PO BID #0 tab 11/27/15 04/21/22 History omega 6-isz-mfc-fish oil 1,000 mg 1 cap PO QAM 02/19/20 04/21/22 History (120 mg-180 mg) capsule (Fish Oil) atorvastatin 80 mg tablet 80 mg PO HS 03/13/20 04/21/22 History carvedilol 12.5 mg tablet (Coreg) 12.5 mg PO .COMPLEX tab 08/09/20 04/21/22 History doxazosin 2 mg tablet 4 mg PO QAM #0 tab 08/09/20 04/21/22 History hydrochlorothiazide 12.5 mg tablet 25 mg PO QAM tab 08/09/20 04/21/22 History insulin syringe-needle U-100 0.3 #400 ea 09/17/20 10/27/21 Rx mL 31 gauge x 5/16" (BD Insulin Syringe Ultra-Fine) insulin aspart U-100 100 unit/mL 7 unit SUBCUT TID vial 04/07/21 04/21/22 History subcutaneous solution (Novolog U-100 Insulin aspart) metformin 1,000 mg tablet 1,000 mg PO BID tab 04/07/21 04/21/22 History insulin glargine 100 unit/mL 10 unit SUBCUT QAM ml 10/27/21 04/21/22 History subcutaneous solution (Lantus U-100 Insulin) calcium phosphate,dibasic 77 1 tab PO QAM 04/16/22 04/21/22 History mg-vitamin D3 400 unit tablet docusate sodium 50 mg capsule 50 mg PO BID 04/16/22 04/21/22 History (Stool Softener) Patient History Medical History CAD (coronary artery disease) S/p stenting to the left PDA in 06/2015 2018: Cath showed nonobstructive CAD with patent PDA stent Diabetes Dyslipidemia Fatty liver GERD (gastroesophageal reflux disease) occasional Hypertension Lumbar disc herniation with radiculopathy Myocardial Infarction x3, most recent 2018, stent placed 06/2015 [facility] [place] Obesity Osteoarthritis Tobacco abuse Surgical History History of back surgery 2 yrs ago History of cardiac cath 2015: stent x1- to left PDA 2018: cath showed nonobstructive CAD with patent PDA stent History of colonoscopy 2019 History of discectomy History of esophagogastroduodenoscopy (EGD) 2019 History of hernia repair History of vasectomy Family History Father Diabetes Hypertension Mother Breast cancer Grandmother (Maternal) Diabetes Grandmother (Paternal) Diabetes Sister Diabetes Social History Smoking Status: Current every day smoker Tobacco Type: Cigars packs per day: 1; Cigarettes Per Day: 1 pack per day-advised; Second Hand Exposure: No; Do You Dip or Chew Tobacco: No; Tobacco Cessation Education Requested by Patient: No Hx Alcohol Use: Yes (once per mo) Alcohol type: beer Alcohol Intake Frequency Comment: Socially, last intake was 2 days ago 2 light beers Hx Substance Use: No Preferred Language: Wallisian Communication Ability: Effective Junior Paralegal Required: No Beliefs That Will Affect Care: None marital status: Current Living Situation: Spouse Other Information That Helps Us Care for You: No Feels Safe at Home: Yes Safety Concerns: Feels Safe At This Time Assistive Devices: Glasses Assistive Devices Comment: reading glasses Review of Systems Review of Systems: At least 10 Review of systems were reviewed and all negative except as indicated in HPI Physical Exam Physical Exam: General:. NAD, well developed, well nourished, average body habitus HEENT:. Normocephalic and atraumatic, Normal Conjunctiva, EOMI, Sclera is non- icteric Lungs:. No signs of respiratory distress, CTA, no wheezing or crackles Heart:. Normal S1, S2, no murmur Abdominal:. ND, Soft, NT MSK:able to move b/l knees and ankles Psych:. AAOx3, normal affect Results & Data ([facility]) Vital Signs (Past 12 Hours) Vital Signs Temp Pulse Pulse Resp BP BP Pulse Ox 04/21/22 19:13 36.7 C 83 18 130/78 95 04/21/22 18:14 36.4 C L 91 H 16 126/75 94 04/21/22 17:10 36.5 C 73 16 136/73 95 04/21/22 16:43 70 16 118/77 95 04/21/22 16:10 36.5 C 74 16 128/65 96 04/21/22 15:45 66 21 144/83 H 94 04/21/22 15:35 58 L 23 146/79 H 95 04/21/22 15:25 36.2 C L 65 24 142/89 H 97 04/21/22 15:15 66 16 142/78 H 95 04/21/22 15:05 70 21 143/81 H 92 04/21/22 14:55 72 16 145/84 H 96 04/21/22 14:46 36.2 C L 86 16 148/80 H 99 04/21/22 11:09 37 C 95 H 18 155/93 H 97
[2022-04-22] MEDS: SODIUM CHLORIDE 0.9% 1000ML 1,000 ML IV SCH (00:24)
[2022-04-22] MEDS: INSULIN ASPART PER UNIT SC SCH ×4 (00:25→12:47)
[2022-04-22] MEDS: ceFAZolin 2000MG 2,000 MG/15 ML SYR IV SCH (05:32)
[2022-04-22] MEDS: POLYETHYLENE (MIRALAX) 17 GM PACK PO SCH ×2 (05:33→12:52)
[2022-04-22 06:25] LABS: Basophils # (auto) 0.02 K/uL (0-0.2); Basophils % (auto) 0.1 %; Eosinophils # (auto) 0.04 K/uL (0-0.5); Eosinophils % (auto) 0.2 %; Hematocrit (blood only) 38.3 % (42-52); Immature Granulocytes # (auto) 0.07 K/uL (0.00-0.02); Immature Granulocytes % (auto) 0.4 %; Lymphocytes # (auto) 2.11 K/uL (1.2-3.4); Lymphocytes % (auto) 11.5 %; Mean Corpuscular Hemoglobin 30.9 pg (25-34); Mean Corpuscular Hgb Conc 33.9 g/dL (32-36); Mean Platelet Volume 10.3 fL (7.4-10.4); Monocytes # (auto) 1.85 K/uL (0.11-0.59); Neutrophils # (auto) 14.32 K/uL (1.4-6.5); Neutrophils % (auto) 77.8 %; Platelet Count 241 K/uL (130-400); RDW Coefficient of Variation 13.8 % (11.5-14.5); RDW Standard Deviation 45.8 fL (36.4-46.3); Red Blood Count 4.21 M/uL (4.7-6.1); White Blood Count 18.41 K/uL (4.8-10.8)
[2022-04-22 06:46] LABS: BUN Creatinine Ratio 19.6 (10-20); Calcium 9.3 mg/dl (8.5-10.1); Creatinine Clr Calc Pharmacy 106.5 ml/min; Est GFR (African American) 103.7 ml/min; Est GFR (Non-African American) 89.5 ml/min; Potassium 4.7 mmol/L (3.5-5.1)
[2022-04-22] MEDS: amLODIPine BESYLATE 5 MG TAB PO SCH (08:39)
[2022-04-22] MEDS: dexAMETHasone 6 MG in SYRINGE 0 ML IV SCH ×2 (08:40→08:43)
[2022-04-22] MEDS ORDERED: DOXAZosin MESYLATE 4 MG TAB PO SCH (09:00)
[2022-04-22] MEDS ORDERED: carvediloL 12.5 MG TAB PO SCH (09:00)
[2022-04-22] MEDS ORDERED: INSULIN GLARGINE SOLOSTAR 100 UNITS/ML 3 ML PEN SC SCH (09:00)
[2022-04-22] MEDS ORDERED: ASPIRIN 81 MG ECTAB PO SCH (09:00)
[2022-04-22] MEDS ORDERED: LANTUS PER UNIT CHARGE SQ SCH (09:00)
[2022-04-22] MEDS ORDERED: CALCIUM 600MG + VIT D 400 IU TAB PO SCH (09:00)
[2022-04-22] MEDS ORDERED: hydroCHLOROthiazide 25 MG TAB PO SCH (09:00)
--- NOTE | 2022-04-22 10:56 | Pharmacy Report ---
Pharmacy Glycemic Short Note 2 - Date of Service April 22, 2022 - Glycemic Short BSG Results (Last 24 hours): 04/21/22 04/21/22 04/21/22 11:09 14:49 17:06 Glucose POC Glucose 124 H 125 H 129 H 04/21/22 04/22/22 04/22/22 20:51 00:03 03:50 Glucose POC Glucose 195 H 157 H 155 H 04/22/22 04/22/22 06:10 08:09 Glucose 143 H POC Glucose 141 H OUTPATIENT ANTIDIABETIC REGIMEN: * Lantus 10 units SQ QAM * Novolog 7-9 units SQ TID * Metformin 1gm PO BID ASSESSMENT: * 62 y/o M admitted for lumbar decompression/fusion yesterday. Today is POD #1. * Patient with history of Type 2 diabetes managed at home on basal and bolus insulin and oral Metformin. * Will hold Metformin for now. Possibly resume tomorrow if patient is tolerating diet well. * Patient received Dexamethasone IV 8 mg yesterday during surgery x1 dose. * BSGs trended up to only 195 mg/dl at HS. Patient refused the Lantus 20 units dose that was ordered yesterday at dinner. * Dex 6 mg IV daily continued this AM. Resumed patient's home dose of Lantus this AM. * Novolog continued with stress of 3 parameters. PLAN FOR INPATIENT GLYCEMIC CONTROL: * Hold outpatient oral diabetes medications * Basal insulin * Lantus 10 units SQ QAM * Bolus insulin * NovoLog per scale ACHS or Q6hrs while NPO * Goal Range: Low 110 mg/dL - High 140 mg/dL * Correction Factor: 15 mg/dL/unit * Nutritional / Prandial insulin per carb ratio of 1 unit per 5 grams CHO consumed
--- NOTE | 2022-04-22 13:34 | Discharge Summary ---
Date of Service April 22, 2022 Admission HPI Per Admitting Provider This is a 62-year-old male presents with current persistent back and leg pain. Failing course of nonoperative care is here for surgical intervention. Principal Diagnosis Lumbar spinal stenosis with radiculopathy Discharge Data Allergies Allergy/AdvReac Type Severity Reaction Status Date / Time lisinopril AdvReac Unknown Hives Verified 04/21/22 11:04 Consultations 04/21/22 16:25 Consult Hospitalist Routine Procedures Performed Operation Date: 04/21/22 12:25 Actual Procedures p L5-S1 Decompression and Fusion, Spinal Cord Monitoring(Not Applicable) - Poli Chan DO s L4-L5 Hardware Removal(Not Applicable) - Poli Chan DO Ordered Studies 04/21/22 12:25 [place] lumbar spine 2-3V Routine Hospital Course (1) Neurogenic claudication due to lumbar spinal stenosis: Patient 1 lumbar decompression fusion tolerated this well was taken to orthopedic for possibly. Postop day 1 he was up and ambulating the pain markedly improved pain well controlled. Excellent strength testing. Quinonez bsequently discharged home with his drain in place. He will follow-up in our office this Wednesday for drain removal. Further details and orders can be found in chart for further review. Total Time Total Time Spent Total Time Spent (In Minutes): 20 minutes Discharge Plan Discharge Items Patient Disposition: Home - Self-Care Reason For Visit: Fusion of Spine, Lumbar Region Discharge Diagnosis: Lumbar spinal stenosis with neurogenic claudication Activity: As commented below Non-emergency contact: Primary Care Provider Call non-emergency contact if: you have any medication questions Follow-up/Referrals: PCP,NO [Primary Care Provider] - Diet: Regular Addtl Attending Provider Instructions: ACTIVITY RECOMMENDATIONS: SELF CARE INSTRUCTIONS AFTER THORACIC/LUMBAR FUSIONS 1. You may walk to your tolerance. It is good exercise for your legs and back. Expect some back and intermittent leg aches and pains. 2. You may perform "counter-top" level activities (make a sandwich, juan with a project, etc.). 3. No bending or lifting of more than 10 pounds or back twisting of any nature (roll like a log when turning in bed). 4. You may ride in a car for 20-30 minutes at a time. No driving until after your first visit with your doctor. 5. Frequent changes of position and restricting sitting to 30 minutes at a time will help limit the amount of back spasms and stiffness you may experience. 6. You may discontinue the use of ambulatory aids (cane, crutches, etc.) once your strength and confidence allow. 7. You may head cleaning porter the shower and let water strike your incision when you arrive home at least once daily. Do not take a tub bath, sit in a hot tub or go into a swimming pool until after your first recheck in the office. SPECIAL CARE INSTRUCTIONS: VERY IMPORTANT TO READ AND REVIEW A. Your surgical incision has been closed with a cosmetic suture under the skin that will dissolve in about 6 weeks. In 14 days, you can use a pair of clean scissors and cut the suture that is left outside of the skin at the ends of your incision. 1. The small skin tapes can be removed 7 days after surgery if they have not fallen off by that point. 2. You may keep the wound open to air as much as possible to promote healing after post-op day number 5 unless told otherwise by your doctor. 3. If you think the wound looks like it is becoming infected (redness or worsening drainage) and/or you are experiencing fever, chill or worsening back pain and muscle spasms, contact the office so that we may evaluate you as soon as possible. B. Complications are uncommon, but please contact us if you have any signs or symptoms of: 1. wound infection (fever higher than 102.5 degrees F, redness, separation of wound, drainage, or increasing pain from the incision) 2. blood clots in legs (pain, swelling, redness and warmth in legs) 3. urinary tract infection (fever higher than 102.5 degrees F, burning upon urination or increased frequency of urination) 4. nerve problems (inability to walk on your toes or heels, numbness, loss of bowel or bladder control) 5. any other symptoms that concern you C. Please call the office at if you have any concerns or questions about your operation or recovery. D. No smoking! Smoking drastically decreases the chance of a solid fusion. E. Do not take any anti-inflammatory medications (Indocin, Advil, Motrin, Aspirin, Naprosyn, etc.) as these may inhibit the chance of a solid fusion. Tylenol is okay to take for pain. MANAGING PAIN AFTER SPINAL SURGERY 1. Narcotic medication is intended for short-term use and will be provided for surgical pain. Surgical pain usually lasts for a period of 4-6 weeks. Narcotic medication includes Percocet, Vicodin, Darvocet, Tylenol #3 or Lortab. 2. Longer-term pain is more appropriately treated with non-narcotic medication such as Tylenol ES. 3. Muscle spasm is not appropriately treated with narcotics. Muscle relaxers such as Soma, Flexeril or Skelaxin can be used along with Tylenol ES. 4. Remember that we all live with some "aches and pains". This is not unusual or uncommon after an injury or as we get older. a. Back pain is expected and may include muscle spasms for 4 to 6 weeks after surgery. The pain should gradually improve. If the pain worsens for no apparent reason, please contact the office. b. Intermittent leg pain may also be experienced and should not be concerned about unless it worsens for no apparent reason. If so, please contact the office. 5. We will provide appropriate medication within the normal guidelines of their prescribed use. We will also be very cautious and aware of potential abuse and extended duration of patients' medication needs. a. Pain medications are for your comfort and to assist with sleep and rest so that the tissue can heal. They are not provided in order to return to normal activity and should not be used through the day. To do so or worsening pain at night can result from ongoing tissue damage and development of tolerance to the prescribed medicine. 6. Please allow 2-3 days to process refills. Prescriptions will not be mailed but must be picked up at the office. FOLLOW UP VISIT: Keep your scheduled follow-up appointment. Any questions, please call the office at . Pending Studies at Discharge: No Stand-Alone Forms: My Jogg, Smoking Cessation Medications and DC Order Prescriptions: New tramadol 50 mg tablet 50 mg PO Q6H PRN (Reason: pain, moderate) Qty: 30 RF: 0 oxycodone 5 mg tablet 5 mg PO Q6H PRN (Reason: pain, severe) Qty: 30 RF: 0 Continued aspirin 81 mg Tablet,Delayed Release (Dr/Ec) 81 mg PO QAM Qty: 0 RF: 0 amlodipine 5 mg Tablet 5 mg PO BID Qty: 0 RF: 0 doxazosin 2 mg tablet 4 mg PO QAM Qty: 0 RF: 0 (DME) insulin syringe-needle U-100 [BD Insulin Syringe Ultra-Fine] 0.3 mL 31 gauge x 5/16" syringe See Rx Instructions .ROUTE .MEDSUPPLY Qty: 400 RF: 3 metformin 1,000 mg tablet 1,000 mg PO BID RF: 0 insulin aspart U-100 [Novolog U-100 Insulin aspart] 100 unit/mL solution 7 unit subcut TID RF: 0 Lantus U-100 Insulin 100 unit/mL solution 10 unit SUBCUT QAM RF: 0 omega 7-opu-tuj-fish oil [Fish Oil] 1,000 mg (120 mg-180 mg) Capsule 1 cap PO QAM RF: 0 atorvastatin 80 mg Tablet 80 mg PO HS RF: 0 carvedilol [Coreg] 12.5 mg tablet 12.5 mg PO .COMPLEX RF: 0 hydrochlorothiazide 12.5 mg tablet 25 mg PO QAM RF: 0 Stool Softener 50 mg Capsule 50 mg PO BID RF: 0 calcium phos,dibas-vitamin D3 77-400 mg-unit Tablet 1 tab PO QAM RF: 0 Discharge Orders: Discharge Order (Routine); Ordered 04/22/22 Ordered By: Poli Chan Admission Data Admit Date/Time: 04/21/22 14:38 Attending Provider: Poli Chan Admit Provider: oPli Chan Primary Care Provider: PCP,NO Other Providers: Charissa Gipson ; Michael Castro
== END 2022-04-22 15:33 | disposition home or self-care (01) | DRG 455 ==
LOC: ASU 10:32 → 3N 14:38